=== PATIENT | female | born 1950 | race Caucasian/White ===

== ENCOUNTER 2018-03-26 12:07 | Observation (INO) | payer MEDICARE, SELFPAY ==
[2018-03-26] VITALS (10 sets, daily range): BP systolic 118–164; BP diastolic 53–93; PULSE 53–79; RESP 13–27; TEMP 36.3–36.9; O2SAT 94–100; BMI 29.8; BMI 28.3
--- NOTE | 2018-03-26 12:57 | EKG12_ITS ---
Test Reason : CP Blood Pressure : / mmHG Vent. Rate : 066 BPM Atrial Rate : 066 BPM P-R Int : 220 ms QRS Dur : 100 ms QT Int : 436 ms P-R-T Axes : 049 -05 018 degrees QTc Int : 457 ms Sinus rhythm with 1st degree A-V block Otherwise normal ECG Confirmed by PARAS HITCHCOCK, DWAYNE ([id number]), legal editor EMY HUNTER ([id number] on 03/28/2018 2:13:25 PM Referred By: STEPHANIA Confirmed By:DWAYNE CRAIN MD
--- NOTE | 2018-03-26 12:58 | CT_ITS ---
STUDY: CTA NECK WITH CONTRAST REASON FOR EXAM: Female, 67 years old. Right-sided weakness. Migraine headaches and chest pain. RADIATION DOSAGE (If Supplied By Facility): CTDIvol = ( 24.99 ) mGy, DLP = ( 2102.63 ) mGycm TECHNIQUE: CT angiography with multi-detector data acquisition was performed from the aortic arch to the skull base following intravenous administration of 100 ml of Isovue 370 contrast. MIP images were reconstructed from the axial data set. Post-processing of the angiographic images was performed, with multiplanar reformation and 3D reconstruction. Individualized dose optimization techniques were used for this CT. COMPARISON: None. FINDINGS: Subcentimeter hypodensities in the thyroid gland suggestive of goiter was change. AORTIC ARCH: There is atherosclerotic calcific plaque formation of the aortic arch and great vessels arising from the aortic arch, without a hemodynamically significant stenosis. There is a normal origin of the brachiocephalic, left common carotid arteries.. The left subclavian artery originates from the right brachiocephalic trunk. RIGHT CAROTID ARTERIES: Normal right common carotid artery (CCA). Normal right common carotid bulb. Normal origin of the right internal carotid (ICA) artery without a hemodynamically significant stenosis. Normal visualized cervical portion of the right internal carotid artery. Normal origin of the right external carotid artery (ECA). LEFT CAROTID ARTERIES: Normal left common carotid artery (CCA). Normal left common carotid bulb. Normal origin of the left internal carotid (ICA) artery without a hemodynamically significant stenosis. Normal visualized cervical portion of the left internal carotid artery. Normal origin of the left external carotid artery (ECA). VERTEBRAL ARTERIES: There is enhancement within the bilateral vertebral arteries with a small right vertebral artery, and a dominant left vertebral artery. CT/CTA Neck W/WO Contrast IMPRESSION: No acute abnormality is seen. 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 Electronically Signed: Javi Aranda MD at 14:53 EDT Tel [phone], Service support ,
--- NOTE | 2018-03-26 12:58 | CT_ITS ---
STUDY: CTA CHEST REASON FOR EXAM: Female, 67 years old. Chest pain. Right-sided weakness and migraines. RADIATION DOSAGE (If Supplied By Facility): CTDIvol = ( 24.99 ) mGy, DLP = ( 2102.63 ) mGycm TECHNIQUE: The examination was performed with the intravenous administration of 100 ml of Isovue 370 contrast material. Post-processing of the angiographic images was performed, with multiplanar reformation and 3D reconstruction. Individualized dose optimization techniques were used for this CT. COMPARISON: None. FINDINGS: Normal enhancement of the main pulmonary artery and right and left pulmonary arteries. Normal enhancement of the bilateral peripheral pulmonary arteries. There is no demonstrated pulmonary embolism. There is mild atherosclerotic calcification of the aortic arch with tortuosity. There is no demonstrated aortic dissection. Normal heart and pericardium. Normal mediastinum. Normal hilar regions. Normal visualized trachea and bronchi. The lungs are well expanded. Normal pulmonary parenchyma. Normal pleura. Normal chest wall structures. There are degenerative changes of thoracic spine. Small hiatal hernia. CT/CTA Chest W/WO Contrast IMPRESSION: No acute abnormality is seen. Electronically Signed: Javi Aranda MD at 14:48 EDT Tel [phone], Service support ,
--- NOTE | 2018-03-26 12:58 | CT_ITS ---
STUDY: CTA OF THE BRAIN REASON FOR EXAM: Female, 67 years old. Migraine headaches. Right-sided weakness. RADIATION DOSAGE (If Supplied By Facility): CTDIvol = ( 24.99 ) mGy, DLP = ( 2102.63 ) mGycm TECHNIQUE: CT angiography was performed with a multi-detector CT scanner. Data acquisition was obtained from the skull base through the vertex following intravenous administration of 100 ml of Isovue-370. MIP images were reconstructed from the axial data set. Post-processing of the angiographic images was performed, with multiplanar reformation and 3D reconstruction. Individualized dose optimization techniques were used for this CT. COMPARISON: None. 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 Normal bilateral petrous carotid arteries. Normal right cavernous carotid artery with a normal supraclinoid bifurcation. There is calcified plaque formation of the left cavernous carotid artery, without a cross-sectional luminal stenosis. Normal right A1 segments of the anterior cerebral artery. Normal left A1 segments of the anterior cerebral artery. Normal intact anterior communicating artery (ACOM). Normal bilateral A2 segments of the anterior cerebral arteries. Normal right M1 and M2 segments of the middle cerebral arteries, with a normal M1 bifurcation. Normal left M1 and M2 segments of the middle cerebral arteries, with a normal M1 bifurcation. Normal right posterior communicating artery (PCOM). Normal left posterior communicating artery (PCOM). Normal bilateral vertebral arteries. Normal basilar artery with a normal basilar bifurcation. The visualized bilateral superior cerebellar (SCA) arteries are normal. Normal bilateral P1, P2 and visualized P3 segments of the posterior cerebral arteries. There is no demonstrated aneurysm of the [place] of [place]. Partial opacification of the ethmoid sinuses. Air-fluid level in the right maxillary sinus. CT/CTA Head W/WO Contrast IMPRESSION: Normal [place] without a demonstrated aneurysm or hemodynamically significant stenosis. Partial opacification of the ethmoid sinuses as well as air-fluid level in the right maxillary sinus. Electronically Signed: Javi Aranda MD at 14:51 EDT Tel [phone], Service support ,
--- NOTE | 2018-03-26 13:05 | ED.DCSUM_ITS ---
- ER Visit Summary Date of Service: 03/26/18 Chief Complaint: Chest pain, right-sided weakness History of Present Illness: The patient is a 67 F presenting with right-sided weakness which started approximately 1 hour prior to arrival. Patient states she had a migraine last night. When she woke up this morning it had resolved. The migraine began to come on again while at work. She left work early. Around 11:30 AM she began to notice weakness in her right arm and leg and heaviness in her chest. She also complains of numbness on the right side. Denies vision or speech changes. She states that the chest pain has now resolved. She has nausea with no vomiting. History of migraines, no other medical problems. She is not a smoker. Physical Examination: Vitals are stable. Patient is afebrile. Alert no acute distress. HEENT exam is unremarkable. Neck is supple. No meningismus Lungs are clear and equal bilaterally. Heart is regular rate and rhythm. Abdomen is soft nontender nondistended. Extremities are unremarkable. Skin is warm and dry. NIH 2, RLE weakness, decreased sensation on right Remainder of exam is unremarkable. Emergency Department Course and Treatment: EKG is sinus rate of 66 with no acute ischemic changes. Patient was given aspirin, Compazine, Benadryl. CBC, chemistries unremarkable. Troponin is negative. CTA head and neck show no acute abnormality. CTA chest shows no acute process. On repeat evaluation her NIH is 0. She is feeling improved. Will discuss with the hospitalist for observation. Disposition: Observation Impression: Chest pain, TIA This note was generated with statusboom dictation software. It may contain incorrect words, spelling, and punctuation that were not noted in review of the chart prior to signing ED Disposition - Plan for ED Patient: Chief Complaint: Chest Pain Referrals: Sanju Sheppard MD [Primary Care Provider] -
[2018-03-26] MEDS: proCHLORPERazine 10 MG/2 ML Vial IV (13:38)
[2018-03-26] MEDS: DiphenhydrAMINE 50 MG/ML Syringe 25 MG IV (13:38)
[2018-03-26 13:57] LABS: Absolute Lymphocyte Count 1.76 X10^3/ul (0.83-4.51); Absolute Neutrophil Count 7.6 X10^3/uL (2.0-7.7); Basophil# 0.07 X10^3/uL; Basophil% 0.7 % (0-1); Eosinophil# 0.04 X10^3/uL; Eosinophils% 0.4 % (0-5); Hematocrit 41.1 % (37-47); Hemoglobin 13.2 g/dl (12.0-15.0); Lymphocyte # 1.76 X10^3/ul (4.0); Lymphocyte % 17.8 % (19-41); Mean Corp Hgb Conc 32.1 g/gl (32-36); Mean Corpuscular Hgb 29.1 pg (27.0-32.0); Mean Corpuscular Volume 90.5 fL (81-99); Mean Platelet Vol. 9.7 fl (6.2-12.0); Monocyte# 0.43 X10^3/uL; Monocyte% 4.3 % (0-10); Neutrophil # 7.59 X10^3/uL (2.7-7.7); Neutrophil % 76.8 % (47-70); Platelet Count 280 K/mm3 (150-450); RBC Distribution Width CV 12.9 % (11.6-14.6); RBC Distribution Width SD 42.8 fl (35.1-43.9); Red Blood Count 4.54 M/mm3 (4.2-5.4); White Blood Count 9.9 K/mm3 (4.4-11.0)
[2018-03-26 14:09] LABS: Anion Gap 9 (5-15); BUN 11 mg/dL (7-18); BUN/Creat Ratio 15.1 RATIO (10-20); Calcium,Total 8.9 mg/dL (8.5-10.1); Chloride 107 mmol/L (98-107); Creatinine, Serum 0.73 mg/dL (0.55-1.02); EST Glomerular Filtration Rate 85 mL/min (>60); Est Glom Filt Rate - Afr Amer 103 mL/min (>60); Estimated Creatinine Clearance 63.56 ml/min; Glucose 119 mg/dL (74-106); Potassium 3.4 mmol/L (3.5-5.1); Sodium Level 142 mmol/L (136-145)
[2018-03-26 14:10] LABS: Differential Indicated SCAN CRITERIA MET; POSITIVE COUNT NO; POSITIVE DIFFERENTIAL NO; POSITIVE MORPHOLOGY YES
[2018-03-26] MEDS: Aspirin 325 MG Tablet PO (16:43)
--- NOTE | 2018-03-26 17:55 | PCM.HP.STD ---
Problem List (1) Right sided weakness Status: Acute (2) Migraine Status: Acute (3) Chest pain Status: Acute History of Present Illness Date of Admission: 03/26/18 Chief Complaint: right sided weakness. The patient is a 67 year old F history of migraines but has been migraine free for some time presents with a severe migraine but also developed right-sided weakness today. Patient just felt numb on her right side and has had severe migraines in the past but never had somatic complaints with them. Patient also was feeling palpitations and chest pain. Patient presented to the emergency room where she underwent a CTA of the head neck and a CTA of the chest were all unremarkable. [] Past Medical History Past Medical History (Chronic Problems): Chronic Problems Hiatal hernia (Chronic) Ulcer (Chronic) Medical History: Medical History (Last Updated 03/26/18 @ 17:56 by Oswald Molina DO) IBS (irritable bowel syndrome) K58.9 Migraine G43.909 Allergies venlafaxine HCl [From Effexor] Allergy (Verified 03/26/18 12:08) Hives fluticasone propionate [From Flonase] Adverse Reaction (Verified 03/26/18 12:08) headache Home Medications: Ambulatory Orders Medication Instructions Recorded Phenylephrine/Dm/Acetaminop/GG 1 each PO Q4H PRN PRN 10/22/15 [Sudafed PE Pressure+Pain+Cold] Sumatriptan Succinate 100 mg PO TID PRN PRN 10/22/15 Azelastine HCl [Azelastine HCl] 1 drop EACH EYE BID PRN 03/26/18 Citalopram Hydrobromide 40 mg PO DAILY 03/26/18 [Citalopram HBr] Dicyclomine HCl [Bentyl] 20 mg PO TIDCM 03/26/18 Loperamide [Imodium] 2 mg PO Q4H PRN PRN 03/26/18 Multivitamin [Multiple Vitamins] 1 each PO DAILY 03/26/18 Surgical History: - - egd, colonoscopy Smoking Status: Never smoker Tobacco Use: Non-smoker Alcohol: None Drugs: None - *Family History Maternal History Items: Heart Disease Paternal History Items: Heart Disease Review of Systems Constitutional: Denies: Chills, Fever, Weight Change Eyes: Denies: Blurred vision, Double vision HEENT: Reports: - - migraine. Denies: Head Aches, Sinus Congestion, Sinus Drainage Cardiovascular: Reports: Chest Pain, Palpitations Respiratory: Denies: Cough, Shortness of breath at rest, Sputum production Gastrointestinal: Denies: Abdominal Pain, Nausea, Vomiting Genitourinary: Denies: Dysuria Musculoskeletal: Denies: Joint Pain, Joint Tenderness Skin: Denies: Rash, Wounds Neurological: Reports: Headaches, - - photophobia. Denies: Balance problems, Blurred vision, Double vision Psychiatric: Denies: Anxiety, Depression Hematologic/ Lymphatic: Denies: Easy Bruising, Easy Bleeding, Hx of blood clot Comment: All review of systems are negative except as mentioned in the history of present illness and the other review of systems. VTE Information - Inpt Only VTE Present on Admission: No VTE Mechan Device Prophylaxis: None VTE Pharm Prophylaxis ordered?: Yes Patient Problems: Active and Suspected Problems Right sided weakness (Acute) Migraine (Acute) - Physical Exam General: Alert, Oriented x3, - - Uncomfortable. Sensitive to light. HEENT: Atraumatic, PERRLA, EOMI, Normocephalic Oral: Moist Mucosa, No Gingival or Mucosal Lesions/ Ulcerations Neck: No Nodes, Thyroid Normal Size and Texture Lungs: Clear to auscultation, Normal air movement, No rhonchi, No wheeze Cardiovascular: Regular rate, Regular Rhythm, Normal S1, Normal S2, No murmurs Abdomen: Bowel Sounds Present, Soft, Non Tender, Non-Distended, No Hepato-splenomegaly Extremities: No edema, No Calf Tenderness Skin: No rashes, No breakdown Musculoskeletal: No Tenderness to Palpation of Joints or Extremities, No Muscle Wasting Neurological: Cranial nerves II-XII grossly intact, Deep Tendon Reflexes 2+/4 and Symmetrical, Neuro grossly intact, Motor Exam 5/5 strength throughout, Muscle tone normal, Sensory exam intact to light touch and pain, - - NIH of 0 Psych/Mental Status: Normal Affect, Appropriate Vital Signs Temp Pulse Resp BP Pulse Ox 36.3 C L 53 L 14 142/83 H 100 03/26/18 16:39 03/26/18 17:05 03/26/18 17:05 03/26/18 17:05 03/26/18 17:05 Oxygen Delivery Method Room Air Weight: 76.34 kg Body Mass Index (BMI) 29.8 Laboratory Tests Past 24 Hrs 03/26/18 03/26/18 13:39 13:39 WBC 9.9 RBC 4.54 Hgb 13.2 Hct 41.1 MCV 90.5 MCH 29.1 MCHC 32.1 RDW 12.9 RDW Differential 42.8 Plt Count 280 MPV 9.7 Immature Gran % (Auto) 0.000 Neut % (Auto) 76.8 H Lymph % (Auto) 17.8 L [place] % (Auto) 4.3 Eos % (Auto) 0.4 Baso % (Auto) 0.7 Absolute Neuts (auto) 7.6 Absolute Lymphs (auto) 1.76 Total Counted Not Reportable Differential Comment COMMENT Sodium 142 Potassium 3.4 L Chloride 107 Carbon Dioxide 26.0 Anion Gap 9 BUN 11 Creatinine 0.73 Estim Creat Clear Calc 63.56 Est GFR (MDRD) Af Amer 103 Est GFR (MDRD) Non-Af 85 BUN/Creatinine Ratio 15.1 Glucose 119 H Calcium 8.9 Troponin I < 0.015 Clinical Impression(s) from Imaging Studies Chest CTA 03/26/18 12:58 IMPRESSION: No acute abnormality is seen. Electronically Signed: Javi Aranda MD at 14:48 EDT Tel [phone], Service support , Head CTA 03/26/18 12:58 IMPRESSION: Normal elim [place] of [place] without a demonstrated aneurysm or hemodynamically significant stenosis. Partial opacification of the ethmoid sinuses as well as air-fluid level in the right maxillary sinus. Electronically Signed: Javi Aranda MD at 14:51 EDT Tel [phone], Service support , Neck CTA 03/26/18 12:58 IMPRESSION: No acute abnormality is seen. 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 Electronically Signed: Javi Aranda MD at 14:53 EDT Tel [phone], Service support , EKG reviewed and showed normal sinus rhythm without any acute changes Assessment/Plan All Active Problems Right sided weakness (Acute) Migraine (Acute) Chest pain (Acute) 1. Right-sided weakness Patient has no focal deficits. NIH is 0 I suspect is part related with the patient's a migraine but will do stroke workup to rule out that as an etiology Patient will be on aspirin which she received in the emergency room Patient will have an MRI of the brain. Patient already underwent a CT angiogram of the head neck so an MRA is not necessary 2D echocardiogram Neurology consult Bedside swallow evaluation, patient passes then she can eat, but if she fails, consult speech therapy PT OT evaluate and treat 2. Migraine Patient has a few migraine bad migraines per year but does get headaches intermittently Only takes sumatriptan and when he gets severe. With this being a possible stroke that will be held I will give her 10 mg of Decadron and then as needed Benadryl and Phenergan If patient stroke workup comes back unremarkable will defer to neurology to see if patient may require any chronic suppressive medications for migraines 3. Chest pain ZION score of 1 Will have the patient perform a stress test Cycle troponins CT angiogram of the chest was negative 4. DVT prophylaxis with low migrate heparin Code Visit Inpatient E&M: 55825 Init Hosp L3
--- NOTE | 2018-03-26 18:02 | HP.PCM_ITS ---
Problem List (1) Right sided weakness Status: Acute (2) Migraine Status: Acute (3) Chest pain Status: Acute History of Present Illness Date of Admission: 03/26/18 Chief Complaint: right sided weakness. The patient is a 67 year old F history of migraines but has been migraine free for some time presents with a severe migraine but also developed right-sided weakness today. Patient just felt numb on her right side and has had severe migraines in the past but never had somatic complaints with them. Patient also was feeling palpitations and chest pain. Patient presented to the emergency room where she underwent a CTA of the head neck and a CTA of the chest were all unremarkable. [] Past Medical History Past Medical History (Chronic Problems): Chronic Problems Hiatal hernia (Chronic) Ulcer (Chronic) Medical History: Medical History (Last Updated 03/26/18 @ 17:56 by Oswald Molina DO) IBS (irritable bowel syndrome) K58.9 Migraine G43.909 Allergies venlafaxine HCl [From Effexor] Allergy (Verified 03/26/18 12:08) Hives fluticasone propionate [From Flonase] Adverse Reaction (Verified 03/26/18 12:08) headache Home Medications: Ambulatory Orders Medication Instructions Recorded Phenylephrine/Dm/Acetaminop/GG 1 each PO Q4H PRN PRN 10/22/15 [Sudafed PE Pressure+Pain+Cold] Sumatriptan Succinate 100 mg PO TID PRN PRN 10/22/15 Azelastine HCl [Azelastine HCl] 1 drop EACH EYE BID PRN 03/26/18 Citalopram Hydrobromide 40 mg PO DAILY 03/26/18 [Citalopram HBr] Dicyclomine HCl [Bentyl] 20 mg PO TIDCM 03/26/18 Loperamide [Imodium] 2 mg PO Q4H PRN PRN 03/26/18 Multivitamin [Multiple Vitamins] 1 each PO DAILY 03/26/18 Surgical History: - - egd, colonoscopy Smoking Status: Never smoker Tobacco Use: Non-smoker Alcohol: None Drugs: None - *Family History Maternal History Items: Heart Disease Paternal History Items: Heart Disease Review of Systems Constitutional: Denies: Chills, Fever, Weight Change Eyes: Denies: Blurred vision, Double vision HEENT: Reports: - - migraine. Denies: Head Aches, Sinus Congestion, Sinus Drainage Cardiovascular: Reports: Chest Pain, Palpitations Respiratory: Denies: Cough, Shortness of breath at rest, Sputum production Gastrointestinal: Denies: Abdominal Pain, Nausea, Vomiting Genitourinary: Denies: Dysuria Musculoskeletal: Denies: Joint Pain, Joint Tenderness Skin: Denies: Rash, Wounds Neurological: Reports: Headaches, - - photophobia. Denies: Balance problems, Blurred vision, Double vision Psychiatric: Denies: Anxiety, Depression Hematologic/ Lymphatic: Denies: Easy Bruising, Easy Bleeding, Hx of blood clot Comment: All review of systems are negative except as mentioned in the history of present illness and the other review of systems. VTE Information - Inpt Only VTE Present on Admission: No VTE Mechan Device Prophylaxis: None VTE Pharm Prophylaxis ordered?: Yes Patient Problems: Active and Suspected Problems Right sided weakness (Acute) Migraine (Acute) - Physical Exam General: Alert, Oriented x3, - - Uncomfortable. Sensitive to light. HEENT: Atraumatic, PERRLA, EOMI, Normocephalic Oral: Moist Mucosa, No Gingival or Mucosal Lesions/ Ulcerations Neck: No Nodes, Thyroid Normal Size and Texture Lungs: Clear to auscultation, Normal air movement, No rhonchi, No wheeze Cardiovascular: Regular rate, Regular Rhythm, Normal S1, Normal S2, No murmurs Abdomen: Bowel Sounds Present, Soft, Non Tender, Non-Distended, No Hepato- splenomegaly Extremities: No edema, No Calf Tenderness Skin: No rashes, No breakdown Musculoskeletal: No Tenderness to Palpation of Joints or Extremities, No Muscle Wasting Neurological: Cranial nerves II-XII grossly intact, Deep Tendon Reflexes 2+/4 and Symmetrical, Neuro grossly intact, Motor Exam 5/5 strength throughout, Muscle tone normal, Sensory exam intact to light touch and pain, - - NIH of 0 Psych/Mental Status: Normal Affect, Appropriate Vital Signs Temp Pulse Resp BP Pulse Ox 36.3 C L 53 L 14 142/83 H 100 03/26/18 16:39 03/26/18 17:05 03/26/18 17:05 03/26/18 17:05 03/26/18 17:05 Oxygen Delivery Method Room Air Weight: 76.34 kg Body Mass Index (BMI) 29.8 Laboratory Tests Past 24 Hrs 03/26/18 03/26/18 13:39 13:39 WBC 9.9 RBC 4.54 Hgb 13.2 Hct 41.1 MCV 90.5 MCH 29.1 MCHC 32.1 RDW 12.9 RDW Differential 42.8 Plt Count 280 MPV 9.7 Immature Gran % (Auto) 0.000 Neut % (Auto) 76.8 H Lymph % (Auto) 17.8 L [place] % (Auto) 4.3 Eos % (Auto) 0.4 Baso % (Auto) 0.7 Absolute Neuts (auto) 7.6 Absolute Lymphs (auto) 1.76 Total Counted Not Reportable Differential Comment COMMENT Sodium 142 Potassium 3.4 L Chloride 107 Carbon Dioxide 26.0 Anion Gap 9 BUN 11 Creatinine 0.73 Estim Creat Clear Calc 63.56 Est GFR (MDRD) Af Amer 103 Est GFR (MDRD) Non-Af 85 BUN/Creatinine Ratio 15.1 Glucose 119 H Calcium 8.9 Troponin I < 0.015 Clinical Impression(s) from Imaging Studies Chest CTA 03/26/18 12:58 IMPRESSION: No acute abnormality is seen. Electronically Signed: Javi Aranda MD at 14:48 EDT Tel [phone], Service support , Head CTA 03/26/18 12:58 IMPRESSION: Normal [place] without a demonstrated aneurysm or hemodynamically significant stenosis. Partial opacification of the ethmoid sinuses as well as air-fluid level in the right maxillary sinus. Electronically Signed: Javi Aranda MD at 14:51 EDT Tel [phone], Service support , Neck CTA 03/26/18 12:58 IMPRESSION: No acute abnormality is seen. 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 Electronically Signed: Javi Aranda MD at 14:53 EDT Tel [phone], Service support , EKG reviewed and showed normal sinus rhythm without any acute changes Assessment/Plan All Active Problems Right sided weakness (Acute) Migraine (Acute) Chest pain (Acute) 1. Right-sided weakness * Patient has no focal deficits. * NIH is 0 * I suspect is part related with the patient's a migraine but will do stroke workup to rule out that as an etiology * Patient will be on aspirin which she received in the emergency room * Patient will have an MRI of the brain. Patient already underwent a CT angiogram of the head neck so an MRA is not necessary * 2D echocardiogram * Neurology consult * Bedside swallow evaluation, patient passes then she can eat, but if she fails , consult speech therapy * PT OT evaluate and treat 2. Migraine * Patient has a few migraine bad migraines per year but does get headaches intermittently * Only takes sumatriptan and when he gets severe. With this being a possible stroke that will be held * I will give her 10 mg of Decadron and then as needed Benadryl and Phenergan * If patient stroke workup comes back unremarkable will defer to neurology to see if patient may require any chronic suppressive medications for migraines 3. Chest pain * ZION score of 1 * Will have the patient perform a stress test * Cycle troponins * CT angiogram of the chest was negative 4. DVT prophylaxis with low migrate heparin Code Visit Inpatient E&M: 64814 Init Hosp L3
--- NOTE | 2018-03-26 18:25 | NURSING ---
1805 called er charge to accept patient
--- NOTE | 2018-03-26 18:38 | MRI_ITS ---
STUDY: MRI BRAIN WITH AND WITHOUT CONTRAST REASON FOR EXAM: Female, 67 years old. Right-sided weakness and increased heart rate. TECHNIQUE: Standardized multiplanar fat and water weighted pulse sequences were obtained. 9 ml of Gadavist contrast material was administered intravenously for the contrast portion of the examination. COMPARISON: None. FINDINGS: There is mild cerebral atrophy with widening of the extra-axial spaces and ventricular dilatation. There are multiple white matter hyperintensities, distributed throughout the deep white matter tracts of the cerebral hemispheres, consistent with moderate chronic white matter ischemic changes. There is no evidence for recent intracranial ischemia or other cause of cytotoxic edema on diffusion weighted imaging (DWI). Normal T2* images of the brain without demonstrated susceptibility artifact. There is no demonstrated hemosiderin stain. 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 Normal thalami. There is no extra-axial fluid accumulation. Normal flow voids within the major intracranial circulation suggesting patency by spin echo criteria. Normal venous enhancement. There is no enhancing intra-axial or extra-axial abnormality. Normal sella turcica, pituitary gland, infundibular stalk, optic chiasm and hypothalamus. Normal tectal plate and pineal gland. Normal midbrain, aaron and medulla. Normal cerebellum. Normal basal cisterns. Normal bilateral temporal bones. Normal bilateral internal auditory canals. No demonstrated orbital abnormality, within the constraints of a routine brain study. Fluid layering within the right maxillary sinus is present. Normal calvarium and skull base. Normal visualized soft tissue structures. Normal visualized upper cervical spine. MRI/Brain W/WO Contrast IMPRESSION: Senescent changes above with no evidence of acute intracranial bleed, mass or ischemia. Electronically Signed: Fernando Garcia DO at 20:31 EDT , Service support ,
--- NOTE | 2018-03-26 18:38 | ECHOD_ITS ---
Reason For Study: TIA/CVA Procedure This was a 2D Doppler, Color Flow transthoracic echocardiogram. The study was technically difficult. Exam performed in department. Left Ventricle Normal LV size. Left ventricular systolic function is normal. The estimated ejection fraction is 55 %. Stage 1 diastolic dysfunction. No regional wall motion abnormalities noted. Right Ventricle Normal RV size. Normal systolic function. Atria Normal left atrium. Normal right atrium. Mitral Valve Normal mitral valve. Tricuspid Valve Normal tricuspid valve. Unable to estimate RV systolic pressure/pulmonary artery pressure due to technically difficult study. Aortic Valve Trisinus/trileaflet aortic valve. Great Vessels Normal aortic root. The pulmonary artery is normal size. Normal inferior vena cava. Pericardium/Pleural No pericardial effusion. Medication Performed a rapid injection of agitated mix of 9 cc saline and 1cc air to assess for atrial septal defect. MMode/2D Measurements & Calculations LVIDd: 3.5 cm IVSd: 1.0 cm Ao root diam: 3.0 cm LVIDs: 1.9 cm LVPWd: 0.90 cm LA dimension: 2.9 cm FS: 43.6 % LAV(MOD-sp4): 50.8 ml LA A4 area: 17.9 cm2 Time Measurements MV dec time: 0.22 sec Doppler Measurements & Calculations MV E max preston: 71.2 cm/sec Lat Peak E' Preston: 8.8 cm/sec Med Peak E' Preston: 4.6 cm/sec MV A max preston: 108.9 cm/sec E/E' lat: 8.1 E/E' med: 15.4 MV E/A: 0.65 MV V2 max: 120.4 cm/sec MV P1/2t max preston: 86.7 cm/sec Ao V2 max: 114.6 cm/sec MV max P.8 mmHg MV P1/2t: 71.0 msec Ao max P.3 mmHg MV V2 mean: 67.5 cm/sec MV dec slope: 357.7 cm/sec2 Ao V2 mean: 71.4 cm/sec MV mean P.1 mmHg MVA(P1/2t): 3.1 cm2 Ao mean P.4 mmHg MV V2 VTI: 24.1 cm Ao V2 VTI: 21.3 cm LV V1 max: 91.3 cm/sec PA V2 max: 83.8 cm/sec LV V1 max P.3 mmHg LV V1 mean P.6 mmHg LV V1 mean: 59.0 cm/sec LV V1 VTI: 20.5 cm Interpretation Summary Normal LV size. Left ventricular systolic function is normal. The estimated ejection fraction is 55 %. Stage 1 diastolic dysfunction. Structurally normal valves. Ordering Physician: Oswald Molina Referring Physician: ANTOINETTE JOSHUA Performed By: Stan Campa RCS
[2018-03-27] VITALS (9 sets, daily range): BP systolic 99–153; BP diastolic 46–94; PULSE 47–95; RESP 14–18; TEMP 36.8–37; O2SAT 95–98
--- NOTE | 2018-03-27 05:55 | EKG12_ITS ---
Test Reason : AM EKG Blood Pressure : / mmHG Vent. Rate : 055 BPM Atrial Rate : 055 BPM P-R Int : 206 ms QRS Dur : 092 ms QT Int : 458 ms P-R-T Axes : 052 -06 023 degrees QTc Int : 438 ms Sinus bradycardia Otherwise normal ECG Confirmed by PARAS HITCHCOCK, DWAYNE ([id number]), script editor EMY HUNTER ([id number] on 03/30/2018 1:44:06 PM Referred By: JOSÉ MIGUEL Confirmed By:DWAYNE CRAIN MD
--- NOTE | 2018-03-27 05:55 | STEWCON_ITS ---
Reason For Study: CHEST PAIN Stress Results Protocol: Moi Protocol Maximum Predicted HR: 155 bpm Target HR: 132 bpm% Max imum Predicted HR: 95 % DurationHeart Rate Stage (mm:ss) (bpm) BPComm ent BASELINE 59 132/78 2 CC DEFINITY STAGE 1 3:00 12 0 178/100 STAGE 2 3:00 14 8 182/98 1 CC DEFINITY RECOVERY 77 122/82 2 CC DEFINITY Stress Duration: 6:00 mm:ss Maximum Stress HR: 148 bpm Baseline Echocardiogram Findings Stress Echo Wall motion Data Resting WMIntermediate WMStress WM Stress Results Normal blood pressure response to exercise. Exercise was stopped due to fatigue. EKG Data Baseline ECG demonstrates normal sinus rhythm with a rate of 56 beats per minute. Normal intervals are noted. The resting blood pressure was 132/78. The patient exercised according to the regular Moi protocol for a total duration of 6 min. The maximum heart rate attained was 148 beats per minute. This was 95% of maximum predicted heart rate. The patient exercised into stage 2 of the Moi protocol. During stress, there were no ST or T wave changes noted to suggest ischemia. At peak exercise, upsloping ST changes only were noted, which did not meet the criteria for ischemia. The peak blood pressure was 182/98. No arrhythmias noted. No clinical angina was noted. Interpretation Summary Normal resting LV systolic function. Nonstenotic valves. With stress, the LV size decreased and all segments augmented normally. The LVEF increased from 55% to 65%. Negative for ischemia at 95% of MPHR and at 7 METS. Normal stress echo at a moderate workload. Ordering Physician: Oswald Molina Performed By: Stna Campa RCS
[2018-03-27] MEDS: Aspirin 81 MG TAB.CHEW PO (06:16)
[2018-03-27 06:27] LABS: International Normalized Ratio 0.9; Prothrombin Time (Protime)PT. 12.5 SECONDS (11.7-14.9)
[2018-03-27 06:45] LABS: Absolute Lymphocyte Count 1.68 X10^3/ul (0.83-4.51); Absolute Neutrophil Count 6.7 X10^3/uL (2.0-7.7); Basophil# 0.02 X10^3/uL; Basophil% 0.2 % (0-1); Hemoglobin 12.8 g/dl (12.0-15.0); Lymphocyte # 1.68 X10^3/ul (4.0); Lymphocyte % 19.9 % (19-41); Mean Corp Hgb Conc 32.8 g/gl (32-36); Mean Corpuscular Hgb 29.6 pg (27.0-32.0); Mean Corpuscular Volume 90.3 fL (81-99); Monocyte# 0.07 X10^3/uL; Monocyte% 0.8 % (0-10); Neutrophil # 6.65 X10^3/uL (2.7-7.7); Platelet Count 291 K/mm3 (150-450); RBC Distribution Width CV 12.6 % (11.6-14.6); RBC Distribution Width SD 41.2 fl (35.1-43.9); Red Blood Count 4.32 M/mm3 (4.2-5.4); White Blood Count 8.4 K/mm3 (4.4-11.0)
[2018-03-27 06:46] LABS: Differential Indicated SCAN CRITERIA MET; POSITIVE COUNT NO; POSITIVE DIFFERENTIAL NO; POSITIVE MORPHOLOGY YES
[2018-03-27 06:50] LABS: Anion Gap 9 (5-15); BUN 11 mg/dL (7-18); BUN/Creat Ratio 15.7 RATIO (10-20); Calcium,Total 8.8 mg/dL (8.5-10.1); Chloride 108 mmol/L (98-107); Cholesterol 152 mg/dL (200); EST Glomerular Filtration Rate 89 mL/min (>60); Est Glom Filt Rate - Afr Amer 108 mL/min (>60); Estimated Creatinine Clearance 66.28 ml/min; Glucose 138 mg/dL (74-106); High Density Lipoprotein 55 mg/dL; Potassium 3.9 mmol/L (3.5-5.1); Sodium Level 141 mmol/L (136-145); Triglycerides 48 mg/dL; Very Low Density Lipoprotein 10 mg/dL (5-40)
[2018-03-27] MEDS: Multivitamins,Therapeutic Tablet 1 TABLET PO (10:00)
[2018-03-27] MEDS: Dicyclomine 10 MG Capsule 20 MG PO (10:00)
[2018-03-27] MEDS: Citalopram 40 MG TABLET PO (10:02)
[2018-03-27] MEDS: 0.9% NaCl Peripheral Flush Adult/Peds IV ×2 (10:04→12:42)
[2018-03-27] MEDS: Ketorolac 30 MG/ML Syringe IV (11:23)
--- NOTE | 2018-03-27 12:21 | DCINST_ITS ---
- Discharge Diagnoses Current Active Problems: Current Active and Chronic Problems (Last Updated 03/26/18 @ 17:56 by Oswald Molina DO) Right sided weakness (Acute) Migraine (Acute) You will use the following diet at home:: No restrictions Your food should be the consistency of: Regular Your liquids should be the consistency of: Regular/Thin Discharge Activity: Return to Normal Activity Allergies/Adverse Reactions: Allergies venlafaxine HCl [From Effexor] Allergy (Verified 03/26/18 12:08) Hives fluticasone propionate [From Flonase] Adverse Reaction (Verified 03/26/18 12:08) headache Medications to take at Discharge Sumatriptan Succinate 100 mg PO TID PRN PRN 10/22/15 Azelastine HCl 1 drop EACH EYE BID PRN 03/26/18 Citalopram Hydrobromide [Citalopram HBr] 40 mg PO DAILY 03/26/18 Dicyclomine HCl [Bentyl] 20 mg PO TIDCM 03/26/18 Loperamide [Imodium] 2 mg PO Q4H PRN PRN 03/26/18 Multivitamin [Multiple Vitamins] 1 each PO DAILY 03/26/18 Primary Care Physician: Sanju Sheppard MD [Primary Care Provider] - Please follow up with your Primary Care Physician in: 1-2 weeks Test Results: Test results from this visit will be discussed in further detail at your follow- up appointment, if applicable. Please Follow Up With: Arron Zambrano MD - Neurology When: 1-2 weeks Proposed Discharge Date: 03/27/18
[2018-03-27] MEDS: Magnesium Sulfate 1 GM in 0.9% Normal Saline 100 ML IV (12:42)
--- NOTE | 2018-03-27 12:53 | PCM.CONS.GEN ---
Problem List (1) Complicated migraine Status: Acute Reason for Consult Date of Consultation: 03/27/18 Reason for Consultation: MULLEN, right sided weakness History of Present Illness: The patient is a 67 year old CF with PMH depression, IBS, H/O migraine admitted with MULLEN and right sided weakness. Per patient she gets migraine MULLEN about once in 2 months, is frontal, with photophobia, phonophobia, visual disturbances, lasting hours, takes Imitrex PRN for MULLEN, had been following with Dr. Zambrano. This time per patient her MULLEN started around Monday evening (03/25/18), which was frontal, her usual migraine MULLEN, then the next day she went to work and had right sided weakness lasting hours before improving, had MULLEN during that time, at present denies denies any right sided weakness, has about 2/10 frontal pressure like MULLEN, denies any focal motor weakness, sensory loss, visual disturbances or speech disturbances. MRI brain done on admission reported to be normal. CTA head/neck did not show any hemodynamically significant stenosis or occlusion. Denies any jaw claudication, vision loss or temporal tenderness. [] Past Medical History Past Medical History (Chronic Problems): Chronic Problems (Last Updated 03/26/18 @ 17:56 by Oswald Molina DO) Ulcer (Chronic) Hiatal hernia (Chronic) Medical History: Medical History (Last Updated 03/26/18 @ 17:56 by Oswald Molina DO) IBS (irritable bowel syndrome) K58.9 Migraine G43.909 Allergies venlafaxine HCl [From Effexor] Allergy (Verified 03/26/18 12:08) Hives fluticasone propionate [From Flonase] Adverse Reaction (Verified 03/26/18 12:08) headache Home Medications: Ambulatory Orders Medication Instructions Recorded Sumatriptan Succinate 100 mg PO TID PRN PRN 10/22/15 Azelastine HCl 1 drop EACH EYE BID PRN 03/26/18 Citalopram Hydrobromide 40 mg PO DAILY 03/26/18 [Citalopram HBr] Dicyclomine HCl [Bentyl] 20 mg PO TIDCM 03/26/18 Loperamide [Imodium] 2 mg PO Q4H PRN PRN 03/26/18 Multivitamin [Multiple Vitamins] 1 each PO DAILY 03/26/18 Surgical History: - - egd, colonoscopy Lives: Spouse/ Significant Other Smoking Status: Never smoker Tobacco Use: Non-smoker Alcohol: None Drugs: None - *Family History Maternal History Items: Heart Disease Paternal History Items: Heart Disease Review of Systems Constitutional: Reports: - - complete ROS negative except as stated in HPI - Physical Exam General: Alert HEENT: Normocephalic Neck: Supple Lungs: Clear to auscultation Cardiovascular: Normal S1, Normal S2 Abdomen: Bowel Sounds Present Extremities: No cyanosis Skin: No rashes Musculoskeletal: No Tenderness to Palpation of Joints or Extremities Neurological: - - consious, alert, AoAx3, CN 2-12 grossly intact, power 5/5 all 4 extremities, no sensory loss, no cerebellar signs, Reflexes + B/L B/S/T/K/A. gait deferred, fundus not visualized. Psych/Mental Status: Normal Affect Vital Signs Temp Pulse Resp BP Pulse Ox 98.2 F 66 18 126/65 H 97 03/27/18 12:48 03/27/18 12:48 03/27/18 12:48 03/27/18 12:48 03/27/18 12:48 Oxygen Delivery Method Room Air Weight: 72.4 kg Body Mass Index (BMI) 28.3 Intake and Output for Last 24 Hours 03/25/18 03/26/18 03/27/18 23:59 23:59 23:59 Intake Total 600 / 600 655 / 655 Balance 600 / 600 655 / 655 Laboratory Tests Past 24 Hrs 03/26/18 03/27/18 03/27/18 18:59 05:43 05:43 WBC 8.4 RBC 4.32 Hgb 12.8 Hct 39.0 MCV 90.3 MCH 29.6 MCHC 32.8 RDW 12.6 RDW Differential 41.2 Plt Count 291 MPV 10.0 Immature Gran % (Auto) 0.100 Neut % (Auto) 79.0 H Lymph % (Auto) 19.9 Simpson % (Auto) 0.8 Eos % (Auto) 0.0 Baso % (Auto) 0.2 Absolute Neuts (auto) 6.7 Absolute Lymphs (auto) 1.68 Total Counted Not Reportable PT INR APTT Sodium 141 Potassium 3.9 Chloride 108 H Carbon Dioxide 24.0 Anion Gap 9 BUN 11 Creatinine 0.70 Estim Creat Clear Calc 66.28 Est GFR (MDRD) Af Amer 108 Est GFR (MDRD) Non-Af 89 BUN/Creatinine Ratio 15.7 Glucose 138 H Calcium 8.8 Troponin I < 0.015 Triglycerides 48 Cholesterol 152 LDL Cholesterol 87 VLDL Cholesterol 10 HDL Cholesterol 55 03/27/18 05:43 WBC RBC Hgb Hct MCV MCH MCHC RDW RDW Differential Plt Count MPV Immature Gran % (Auto) Neut % (Auto) Lymph % (Auto) Simpson % (Auto) Eos % (Auto) Baso % (Auto) Absolute Neuts (auto) Absolute Lymphs (auto) Total Counted PT 12.5 INR 0.9 APTT 32.0 Sodium Potassium Chloride Carbon Dioxide Anion Gap BUN Creatinine Estim Creat Clear Calc Est GFR (MDRD) Af Amer Est GFR (MDRD) Non-Af BUN/Creatinine Ratio Glucose Calcium Troponin I Triglycerides Cholesterol LDL Cholesterol VLDL Cholesterol HDL Cholesterol Assessment/Plan All Active Problems (Last Updated 03/26/18 @ 17:56 by Oswald Molina DO) Chest pain (Acute) Right sided weakness (Acute) Migraine (Acute) Complicated migraine (Acute) The patient is a 67 year old CF with PMH depression, IBS, H/O migraine admitted with MULLEN and right sided weakness. Per patient she gets migraine MULLEN about once in 2 months, is frontal, with photophobia, phonophobia, visual disturbances, lasting hours, takes Imitrex PRN for MULLEN, had been following with Dr. Zambrano. This time per patient her MULLEN started around Monday evening (03/25/18), which was frontal, her usual migraine MULLEN, then the next day she went to work and had right sided weakness lasting hours before improving, had MULLEN during that time, at present denies denies any right sided weakness, has about 2/10 frontal pressure like MULLEN, denies any focal motor weakness, sensory loss, visual disturbances or speech disturbances. MRI brain done on admission reported to be normal. CTA head/neck did not show any hemodynamically significant stenosis or occlusion. Denies any vision loss, jaw claudication or temporal tenderness Impression Likely Complicated Migraine Status migrainosus Plan -MRI brain and CTA head/neck report reviewed -Depacon 1 g IV once, Decadron 10 mg IV once, Magnesium Sulphate 1 g IV once and Toradol 30 mg IV once -Labs reviewed. Check ESR -Patient counseled to be on ASA 81 mg PO once daily for primary prevention -Avoid Triptans like Imitrex due to complicated migraine, discussed the same with the patient -Discussed preventive medication but she follows up with Neurologist Dr. Zambrano at [facility], with whom she can follow and discuss preventive medication for migraines, she agrees with the same -Further medical management per primary team -GI/DVT prophylaxis -Fall precautions -Further medical management per primary team -Please follow up with Neurology as outpatient (Dr. Zambrano) in about 1-2 weeks -Please call with questions if any -Thank you for allowing us to participate in patient's care and management I spent 60 minutes taking history, doing physical examination, reviewing medical records, coordinating care and counseling the patient. Code Visit Inpatient E&M: 06836 Init Hosp L3
--- NOTE | 2018-03-27 14:21 | CHAPLAIN ---
Type of Pastoral Visit _x__ Initial Visit ___ Follow-up Visit ___ On-call Visit ___ General Patient Visit ___ Spiritual Assessment ___ Family Conference ___ Bereavement ___ Rapid Response ___ Code Blue ___ Other (describe below) Pastoral Care Referral From _x__ Patient ___ Family ___ Nurse ___ Physician ___ Pie Bakery Laborer ___ Marine Structural Welder ___ Other (describe below) Sacrament/Intervention _x__ Active listening ___ Anointing ___ Episcopalian ___ Bereavement ___ Communion _x__ Lula exploration ___ _x__ Life review _x__ Prayer ___ Reconciliation ___ Sacrament of Sick _x__ Supportive presence ___ Wedding ___ Other (describe below) Pastoral Comments patient expressed some questions of spiritual nature; pt is relieved that situation is not as bad as it could have been or that she feared; prayer welcomed
[2018-03-27 14:22] LABS: Erythrocyte Sedimentation Rate 20 mm/hr (0-30)
--- NOTE | 2018-03-27 14:26 | PCM.DC.SUM ---
Discharge Date and Diagnosis Date of Admission: 03/26/18 Date of Discharge: 03/27/18 - Primary Discharge Diagnosis Active and Suspected Problems (Last Updated 03/26/18 @ 17:56 by Oswald Molina DO) Right sided weakness 2/2 Acute Complicated migraine (Acute) chest pain/palp - cardiac etiology ruled out. - Secondary Discharge Diagnosis Chronic Problems (Last Updated 03/26/18 @ 17:56 by Oswald Molina DO) Ulcer (Chronic) Hiatal hernia (Chronic) Hospital Course and Treatment Imaging Results: CT/CTA Chest W/WO Contrast IMPRESSION: No acute abnormality is seen. CT/CTA Head W/WO Contrast IMPRESSION: Normal [place] without a demonstrated aneurysm or hemodynamically significant stenosis. Partial opacification of the ethmoid sinuses as well as air-fluid level in the right maxillary sinus. CT/CTA Neck W/WO Contrast IMPRESSION: No acute abnormality is seen. 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 MRI/Brain W/WO Contrast IMPRESSION: Senescent changes above with no evidence of acute intracranial bleed, mass or ischemia. Consults: [place] - neuro Operations: None Procedures: None Summary of Care Provided: Physical exam on day of discharge: General: Resting comfortably NAD Psych: A/Ox3 normal affect HEENT: PEARRLA AT NC Neck: Supple NT CV: RRR no m/t/r/g/h Resp: CTA Abd: [id number] Soft NT no guarding or rigidity Ext: DP2+= no edema Skin: W/D normal turgor Lymph/Heme: No active bleeding or adenopathy Neuro: CN2-12 intact Hospital course: The patient is a 67 year old F with a hx of migraines who presented to the ER with chief complaint of right arm weakness and BL perioccular MULLEN of sudden onset, also with some chest pain and palp. She underwent CTA chest - negative, CTA head and neck - also negative. She was given phenergan benadryl, and decadron. She was seen by neuro the following day. She had a negative MRI. She was felt to have migraine. She was given a further decadron, IV depakote, toradol, and magnesium IV. Troponin negative x 3, No events on tele, echo readout is pending at this time, no further CP or palp. She was discharged home in stable condition. She was advised to follow up with her own neurologist, and with her PCP. This patient was seen by Jeremi Umana PA-C under the supervision of Doctor Silvia. [] Discharge Diet: No Restrictions Discharge Activity: Return to Normal Activity Home Medications: Medications to take at Discharge Sumatriptan Succinate 100 mg PO TID PRN PRN 10/22/15 Azelastine HCl 1 drop EACH EYE BID PRN 03/26/18 Citalopram Hydrobromide [Citalopram HBr] 40 mg PO DAILY 03/26/18 Dicyclomine HCl [Bentyl] 20 mg PO TIDCM 03/26/18 Loperamide [Imodium] 2 mg PO Q4H PRN PRN 03/26/18 Multivitamin [Multiple Vitamins] 1 each PO DAILY 03/26/18 Primary Care Physician: Sanju Sheppard MD [Primary Care Provider] - Please follow up with your Primary Care Physician in: 1-2 weeks Please Follow Up With: Arron Zambrano MD - Neurology When: 1-2 weeks Disposition: Home Minutes spent on discharge:: 35 Patient Condition:: Stable Medical Necessity - Tobacco Use Smoking Status: Never smoker Tobacco Use: Non-smoker Meaningful Use Info Meaningful Use Diagnoses (Choose all that apply): None applicable
--- NOTE | 2018-03-27 14:37 | DS.PCM_ITS ---
Discharge Date and Diagnosis Date of Admission: 03/26/18 Date of Discharge: 03/27/18 - Primary Discharge Diagnosis Active and Suspected Problems (Last Updated 03/26/18 @ 17:56 by Oswald Molina DO ) Right sided weakness 2/2 Acute Complicated migraine (Acute) chest pain/palp - cardiac etiology ruled out. - Secondary Discharge Diagnosis Chronic Problems (Last Updated 03/26/18 @ 17:56 by Oswald Molina DO) Ulcer (Chronic) Hiatal hernia (Chronic) Hospital Course and Treatment Imaging Results: CT/CTA Chest W/WO Contrast IMPRESSION: No acute abnormality is seen. CT/CTA Head W/WO Contrast IMPRESSION: Normal [place] without a demonstrated aneurysm or hemodynamically significant stenosis. Partial opacification of the ethmoid sinuses as well as air-fluid level in the right maxillary sinus. CT/CTA Neck W/WO Contrast IMPRESSION: No acute abnormality is seen. 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 MRI/Brain W/WO Contrast IMPRESSION: Senescent changes above with no evidence of acute intracranial bleed, mass or ischemia. Consults: [place] - neuro Operations: None Procedures: None Summary of Care Provided: Physical exam on day of discharge: General: Resting comfortably NAD Psych: A/Ox3 normal affect HEENT: [place] AT NC Neck: Supple NT CV: RRR no m/t/r/g/h Resp: CTA Abd: [id number] Soft NT no guarding or rigidity Ext: DP2+= no edema Skin: W/D normal turgor Lymph/Heme: No active bleeding or adenopathy Neuro: CN2-12 intact Hospital course: The patient is a 67 year old F with a hx of migraines who presented to the ER with chief complaint of right arm weakness and BL perioccular MULLEN of sudden onset , also with some chest pain and palp. She underwent CTA chest - negative, CTA head and neck - also negative. She was given phenergan benadryl, and decadron. She was seen by neuro the following day. She had a negative MRI. She was felt to have migraine. She was given a further decadron, IV depakote, toradol, and magnesium IV. Troponin negative x 3, No events on tele, echo readout is pending at this time, no further CP or palp. She was discharged home in stable condition. She was advised to follow up with her own neurologist, and with her PCP. This patient was seen by Jeremi Umana PA-C under the supervision of Doctor Silvia. [] Discharge Diet: No Restrictions Discharge Activity: Return to Normal Activity Home Medications: Medications to take at Discharge Sumatriptan Succinate 100 mg PO TID PRN PRN 10/22/15 Azelastine HCl 1 drop EACH EYE BID PRN 03/26/18 Citalopram Hydrobromide [Citalopram HBr] 40 mg PO DAILY 03/26/18 Dicyclomine HCl [Bentyl] 20 mg PO TIDCM 03/26/18 Loperamide [Imodium] 2 mg PO Q4H PRN PRN 03/26/18 Multivitamin [Multiple Vitamins] 1 each PO DAILY 03/26/18 Primary Care Physician: Sanju Sheppard MD [Primary Care Provider] - Please follow up with your Primary Care Physician in: 1-2 weeks Please Follow Up With: Arron Zambrano MD - Neurology When: 1-2 weeks Disposition: Home Minutes spent on discharge:: 35 Patient Condition:: Stable Medical Necessity - Tobacco Use Smoking Status: Never smoker Tobacco Use: Non-smoker Meaningful Use Info Meaningful Use Diagnoses (Choose all that apply): None applicable
== END 2018-03-27 12:20 | disposition home or self-care (01) ==
LOC: ED 13:22 → PCU 18:19
PROVIDERS: Psychiatry & Neurology Neurology; Emergency Provider Emergency Medicine; Family Provider Family Medicine; PCP Family Medicine; Visit Provider Internal Medicine
DX: R07.89 Other chest pain (principal); R53.1 Weakness; G43.109 Migraine with aura, not intractable, without status migrainosus; K58.9 Irritable bowel syndrome, unspecified; K44.9 Diaphragmatic hernia without obstruction or gangrene; Z79.899 Other long term (current) drug therapy
CPT/HCPCS: 36415; 70496; 70498; 70553; 71275; 80048; 80061; 84484; 85025; 85610; 85652; 85730; 93005; 93017; 93306; 93350; 96365; 96375; 96376; 99218; 99285; A9585; Q9957; Q9967; A4216; C8928; G0378

== ENCOUNTER 2018-10-11 16:00 | Outpatient (RCR) | payer MEDICARE, SELFPAY | END 2018-10-11 23:59 | LOC: NS 16:00 | PROVIDERS: Family Provider Family Medicine; PCP Family Medicine; Visit Provider Nurse Practitioner Family | DX: E66.3 Overweight (principal); Z68.28 Body mass index [BMI] 28.0-28.9, adult; Z71.3 Dietary counseling and surveillance | CPT/HCPCS: 97802; 97803 ==

== ENCOUNTER 2019-06-07 19:59 | Emergency (ER) | payer MEDICARE, SELFPAY ==
[2019-06-07 20:00] VITALS: BP 145/114; PULSE 89; RESP 18; TEMP 36.7; O2SAT 99; BMI 28.5
--- NOTE | 2019-06-07 20:00 | RAD_ITS ---
STUDY: X-RAY CHEST REASON FOR EXAM: Female, 68 years old. Chest pain TECHNIQUE: Single frontal view of the chest. COMPARISON: 02/09/2017. FINDINGS: There is elevation of the left hemidiaphragm which is stable. Otherwise normal lung volumes. Lungs are clear. No infiltrates or effusions seen. Normal size heart. Normal mediastinum and janette. Normal visualized pulmonary arteries. Normal visualized aortic arch and descending thoracic aorta. Normal visualized thoracic spine. Normal visualized ribs, clavicles, and shoulders. There is no demonstrated abnormality of the visualized soft tissue structures of the upper abdomen. RAD/Chest 1 View (Portable) IMPRESSION: No acute chest disease. Electronically Signed: Abhinav Bernstein MD at 20:25 EDT , Service support ,
--- NOTE | 2019-06-07 20:00 | EKG12_ITS ---
Test Reason : CP Blood Pressure : / mmHG Vent. Rate : 090 BPM Atrial Rate : 090 BPM P-R Int : 206 ms QRS Dur : 090 ms QT Int : 366 ms P-R-T Axes : 057 -10 028 degrees QTc Int : 447 ms Normal sinus rhythm Normal ECG Confirmed by KARLI HITCHCOCK, MALIA ([id number]), clinical editor SUMIT LÓPEZ ([id number]) on 06/10/2019 3:20:11 PM Referred By: CHINYERE Confirmed By:MALIA CALVILLO MD
[2019-06-07] MEDS: Aspirin 81 MG TAB.CHEW 324 MG PO (20:12)
--- NOTE | 2019-06-07 20:13 | ED.VISSUMM ---
- ER Visit Summary Date of Service: 06/07/19 Chief Complaint: Chest pain History of Present Illness: The patient is a 68 F no seen past medical history. Patient states that around 6:15 PM the night she started having chest pain. Volar splint no shortness of breath. No diaphoresis. Said it was more of a pounding than pain. She denies any cardiac history. She did have a negative stress echo and echocardiogram about 1 year ago. She denies any recent exertional dyspnea or exertional chest pain. No history of DVT or PE. No recent travel, surgery or immobilization. Denies any pleuritic chest pain or hemoptysis. No leg pain or swelling. Physical Examination: Older female no acute distress vital signs are stable. She is afebrile. She does not look septic or toxic. HEENT exam unremarkable. Neck nontender. Lungs good auscultation bilaterally. No rales, rhonchi or wheezing. Chest wall she has reproducible left-sided chest wall tenderness. There is no ecchymosis or bruising no subcu air crepitance. She denies any trauma no chest wall. Abdomen soft nontender normal bowel sounds no peritoneal signs. No pulsatile mass. Patient is moving all 4 extremities. Neurovascular intact. Calves are nontender without edema or cords. Equal symmetrical radial pulses. Neurologically she is awake and alert with no focal motor deficits. Test Results: EKG sinus rhythm rate of 90 with no acute signs of MO or ischemia. One view chest x-ray read both by myself and the radiologist shows no acute abnormality. Normal cardiac silhouette mediastinum. CBC normal white count of 9. Hemoglobin 13. Chemistries unremarkable normal creatinine and gap. Troponin normal. Emergency Department Course and Treatment: Treated with p.o. aspirin. Clinically this appears to be chest wall pain. Otherwise she has a normal exam. Repeat exam at 9:31 PM patient is doing well. She is pain-free. Her current blood pressure is 138/86. States she is feeling better. She is less anxious. She had been in the ER earlier today with a patient but not as a patient. Clinically I do not think this is cardiac. I do not think she needs a repeat troponin. She had a negative stress stress test and echocardiogram a little over a year ago. She and her are comfortable being discharged home. Treatment Plan: Log blood pressures twice daily. Follow-up with primary care physician next week. Return if worse. Disposition: Discharge Impression: Acute chest pain with acute left chest wall pain This note was generated with [employer] dictation software. It may contain incorrect words, spelling, and punctuation that were not noted in review of the chart prior to signing ED Disposition - Plan for ED Patient: Referrals: Sanju Sheppard MD [Primary Care Provider] -
[2019-06-07 20:17] LABS: Absolute Neutrophil Count 3.7 X10^3/uL (2.0-7.7); Basophil# 0.07 X10^3/uL; Basophil% 0.7 % (0-1); Eosinophils% 4.1 % (0-5); Hematocrit 42.6 % (37-47); Hemoglobin 13.7 g/dL (12.0-15.0); Lymphocyte % 49.7 % (19-41); Mean Corp Hgb Conc 32.2 g/dL (32-36); Mean Corpuscular Hgb 29.8 pg (27.0-32.0); Mean Corpuscular Volume 92.8 fL (81-99); Mean Platelet Vol. 9.1 fl (6.2-12.0); Monocyte# 0.76 X10^3/uL; Monocyte% 7.7 % (0-10); NRBC Flagged by Analyzer 0 % (0-5); Neutrophil % 37.6 % (47-70); Platelet Count 274 K/mm3 (150-450); RBC Distribution Width CV 12.1 % (11.6-14.6); RBC Distribution Width SD 41.4 fl (35.1-43.9); Red Blood Count 4.59 M/mm3 (4.2-5.4); White Blood Count 9.9 K/mm3 (4.4-11.0)
[2019-06-07 20:35] LABS: Anion Gap 4 (5-15); BUN 15 mg/dL (7-18); BUN/Creat Ratio 16.3 RATIO (10-20); Calcium,Total 8.9 mg/dL (8.5-10.1); Chloride 106 mmol/L (98-107); Creatinine, Serum 0.92 mg/dL (0.55-1.02); EST Glomerular Filtration Rate 65 mL/min (>60); Est Glom Filt Rate - Afr Amer 78 mL/min (>60); Estimated Creatinine Clearance 49.76 ml/min; Glucose 94 mg/dL (74-106); Potassium 3.4 mmol/L (3.5-5.1); Sodium Level 139 mmol/L (136-145)
[2019-06-07 21:00] VITALS: BP 138/86; PULSE 71; RESP 17; O2SAT 98
[2019-06-07] MEDS: Acetaminophen 500 MG Tablet 1000 MG PO (21:23)
--- NOTE | 2019-06-07 21:36 | ED.DEP ---
ED Disposition - Plan for ED Patient: Disposition: Home or Assisted Living Instructions: CHEST PAIN, Uncertain Cause Referrals: Sanju Sheppard MD [Primary Care Provider] - 1 Week Additional Instructions: Because your blood pressures twice daily in the morning and in the evening. Record does ensure that your primary care physician next week. Return if feeling worse.
[2019-06-07 21:40] VITALS: BP 130/70; PULSE 70; RESP 14; O2SAT 97
== END 2019-06-07 21:50 | disposition home or self-care (01) ==
PROVIDERS: Emergency Provider Emergency Medicine; Family Provider Family Medicine; PCP Family Medicine
DX: R07.89 Other chest pain (principal)
CPT/HCPCS: 71045; 80048; 84484; 85025; 93005; 99285; A4216

== ENCOUNTER → 2019-06-21 16:15 | Outpatient (CLI) | payer MEDICARE, SELFPAY ==
[2019-06-07 20:00] VITALS: BMI 28.5
== END ==
PROVIDERS: Family Provider Family Medicine; PCP Family Medicine; Referring Provider Otolaryngology Otolaryngology/Facial Plastic Surgery; Visit Provider Otolaryngology Otolaryngology/Facial Plastic Surgery
DX: J32.9 Chronic sinusitis, unspecified (principal)
CPT/HCPCS: 87070; 87205

== ENCOUNTER → 2019-07-25 13:48 | Outpatient (CLI) | payer MEDICARE, SELFPAY ==
--- NOTE | 2019-07-25 13:51 | CT_ITS ---
STUDY: CT MAXILLOFACIAL SINUSES REASON FOR EXAM: Female, 68 years old. Sinusitis, history of headaches and hypertension. RADIATION DOSAGE (If Supplied By Facility): CTDIvol = ( 33.45 ) mGy, DLP = ( 738.73 ) mGycm TECHNIQUE: The patient was scanned in a multi detector CT scanner. High resolution axial imaging was performed without the administration of intravenous contrast material. Sagittal and coronal images were reconstructed. Individualized dose optimization techniques were used for this CT. COMPARISON: None. FINDINGS: FRONTAL SINUSES: Normal aeration, without mucosal inflammatory disease. ETHMOIDAL SINUSES: Partial mild mucosal thickening noted bilaterally. MAXILLARY SINUSES: There are bilateral air-fluid levels, more significant on the right compared to the left. SPHENOIDAL SINUSES: Normal aeration, without mucosal inflammatory disease. Bilateral mastoids are clear. There is patency of the bilateral maxillary infundibuli with normal uncinate processes, ethmoid bullae, and hiatus semilunaris. Normal bilateral middle turbinates. Normal bilateral inferior turbinates. There is mild deviation of the anterior osseous nasal septum, convexity to the left. There is patency of the bilateral nasal airways. The visualized osseous structures are normal. The visualized bilateral orbital contents are normal. There is atherosclerotic calcifications of the bilateral carotid arteries. CT/Sinus/Facial Bone IMPRESSION: Sinusitis involving the ethmoid and mastoid sinuses as described above. No acute fracture. For details see above report. Electronically Signed: Yahaira Calderon MD at 4:34 EST , Service support ,
== END ==
PROVIDERS: Family Provider Family Medicine; PCP Family Medicine; Referring Provider Otolaryngology Otolaryngology/Facial Plastic Surgery; Visit Provider Otolaryngology Otolaryngology/Facial Plastic Surgery
DX: J32.9 Chronic sinusitis, unspecified (principal)
CPT/HCPCS: 70486

== ENCOUNTER → 2020-02-27 09:44 | Outpatient (CLI) | payer MEDICARE, SELFPAY ==
--- NOTE | 2020-02-27 | RAD_ITS ---
STUDY: AIR-CONTRAST UPPER GI SERIES. REASON FOR EXAM: Female, 69 years old. Nausea for a couple of months, hx of ulcers, paraesophageal hernia repaired 2016, constipation/ diarrhea FLUOROSCOPY TIME (if supplied): ( 78 seconds ) minutes/seconds. 18 images were obtained. TECHNIQUE: The patient ingested barium. Multiple images of the esophagus, stomach and duodenum were obtained. COMPARISON: Comparison is made with prior examination dated June 06, 2017. FINDINGS: There is evidence of a small sliding hiatal hernia without gastroesophageal reflux. Once again, there is a tapering defect in the lower end of the esophagus in keeping with a prior Ezekiel fundoplication. The remainder of the stomach and duodenum are unremarkable. The patient ingested a 12 mm tablet of barium. The tablet is trapped within the hiatal hernia. RAD/Upper GI Dual Contrast IMPRESSION: Status post Tiago fundoplication. Small hiatal hernia. The 12 mm ingested tablet of barium is trapped within the hiatal hernia. Electronically Signed: Javi Aranda, at 12:33 EDT , Service support ,
== END ==
PROVIDERS: PCP Family Medicine; Referring Provider Nurse Practitioner Adult Health; Visit Provider Nurse Practitioner Adult Health
DX: R10.13 Epigastric pain (principal)
CPT/HCPCS: 74246

== ENCOUNTER 2020-06-22 02:35 | Emergency (ER) | payer MEDICARE, SELFPAY ==
[2020-06-22 02:35] VITALS: BP 152/87; PULSE 77; RESP 14; O2SAT 98
[2020-06-22 02:36] VITALS: BP 152/87; PULSE 71; RESP 13; TEMP 35.6; O2SAT 99; BMI 29.7
--- NOTE | 2020-06-22 02:51 | EKG12_ITS ---
Test Reason : DYSRHYTHMIA Blood Pressure : / mmHG Vent. Rate : 078 BPM Atrial Rate : 078 BPM P-R Int : 198 ms QRS Dur : 092 ms QT Int : 396 ms P-R-T Axes : 051 -05 034 degrees QTc Int : 451 ms Normal sinus rhythm Minimal voltage criteria for LVH, may be normal variant Borderline ECG Confirmed by KARLI HITCHCOCK, MALIA ([id number]), sound editor SUMIT LÓPEZ ([id number]) on 06/23/2020 12:57:23 PM Referred By: RAVI Confirmed By:MALIA CALVILLO MD
--- NOTE | 2020-06-22 02:54 | CT_ITS ---
STUDY: CTA OF THE BRAIN Within limits of contrast. REASON FOR EXAM: Female, 69 years old. MULLEN/TINGLING BOTH HANDS. Hx of migraines. Please dictate noncontrast brain as well RADIATION DOSAGE (If Supplied By Facility): CTDIvol = ( 27.93 ) mGy, DLP = ( 1204.72 ) mGycm TECHNIQUE: CT angiography was performed with a multi-detector CT scanner. Data acquisition was obtained from the skull base through the vertex following intravenous administration of IV 75mL Isovue-370. MIP images were reconstructed from the axial data set. Post-processing of the angiographic images was performed, with multiplanar reformation and 3D reconstruction. Individualized dose optimization techniques were used for this CT. COMPARISON: CT angiogram head March 26, 2018 , CT head March 26, 2018, MRI brain March 26, 2018, history of migraines right-sided weakness. FINDINGS: Normal bilateral petrous carotid arteries. Normal right cavernous carotid artery with a normal supraclinoid bifurcation. Normal left cavernous carotid artery with a normal supraclinoid bifurcation. Normal right A1 segments of the anterior cerebral artery. Normal left A1 segments of the anterior cerebral artery. Normal intact anterior communicating artery (ACOM). Normal bilateral A2 segments of the anterior cerebral arteries. Normal right M1 and M2 segments of the middle cerebral arteries, with a normal M1 bifurcation. Normal left M1 and M2 segments of the middle cerebral arteries, with a normal M1 bifurcation. Normal right posterior communicating artery (PCOM). Normal left posterior communicating artery (PCOM). Normal bilateral vertebral arteries. Normal basilar artery with a normal basilar bifurcation. The visualized bilateral superior cerebellar (SCA) arteries are normal. Normal bilateral P1, P2 and visualized P3 segments of the posterior cerebral arteries. There is no demonstrated aneurysm of the native of Alas. The noncontrasted CT head demonstrates mild atrophy. Within the left external capsule and a portion of the anterior limb of the left internal capsule there is subtle persistent low attenuating focus compatible with prior ischemic change. This was described on the prior MRI. There is a stable band of left greater than right cerebellar atrophy. There is ethmoid sinus mucosal thickening. There is a right middle turbinate janette bullosa. There is minimal frontal sinus mucosal thickening minimal fluid in the right sphenoid sinus. There is chronic appearing mucosal thickening in the left maxillary sinus. Since the prior study March 26, 2018 there is lesser air-fluid level within the right maxillary sinus. CT/CTA Head W/WO Contrast IMPRESSION: Normal native of Alas without a demonstrated aneurysm or hemodynamically significant stenosis. Mild atrophy. Evidence of small focus prior ischemic change within the left side basal ganglia no significant interval change since prior study. Chronic mild pansinusitis. Improved right maxillary sinusitis when compared to prior study. Electronically Signed: Rohini Cruz MD at 4:23 EDT Tel , Service support ,
[2020-06-22] MEDS: 0.9% Normal Saline 1,000 ML 1000 ML IV (03:04)
[2020-06-22] MEDS: DiphenhydrAMINE 50 MG/ML Syringe IV (03:04)
[2020-06-22] MEDS: Metoclopramide 10 MG/2 ML Vial IV (03:04)
[2020-06-22 03:11] LABS: Absolute Lymphocyte Count 4.68 X10^3/uL (0.83-4.51); Absolute Neutrophil Count 3.8 X10^3/uL (2.0-7.7); Basophil# 0.04 X10^3/uL; Basophil% 0.4 % (0-1); Eosinophils% 3.1 % (0-5); Hematocrit 40.3 % (37-47); Hemoglobin 12.7 g/dL (12.0-15.0); Lymphocyte # 4.68 X10^3/ul (4.0); Lymphocyte % 48.7 % (19-41); Mean Corp Hgb Conc 31.5 g/dL (32-36); Mean Corpuscular Volume 95.3 fL (81-99); Mean Platelet Vol. 9.5 fl (6.2-12.0); Monocyte# 0.81 X10^3/uL; Monocyte% 8.4 % (0-10); NRBC Flagged by Analyzer 0 % (0-5); Neutrophil # 3.76 X10^3/uL (2.7-7.7); Neutrophil % 39.2 % (47-70); Platelet Count 346 K/mm3 (150-450); RBC Distribution Width SD 45.1 fl (35.1-43.9); Red Blood Count 4.23 M/mm3 (4.2-5.4); White Blood Count 9.6 K/mm3 (4.4-11.0)
[2020-06-22 03:45] LABS: Anion Gap 4 (5-15); BUN 13 mg/dL (7-18); Calcium,Total 9.2 mg/dL (8.5-10.1); Chloride 106 mmol/L (98-107); Creatinine, Serum 0.87 mg/dL (0.55-1.02); EST Glomerular Filtration Rate 69 mL/min (>60); Est Glom Filt Rate - Afr Amer 84 mL/min (>60); Estimated Creatinine Clearance 51.91 ml/min; Glucose 92 mg/dL (74-106); Potassium 3.3 mmol/L (3.5-5.1); Sodium Level 140 mmol/L (136-145)
--- NOTE | 2020-06-22 03:49 | ED.VISSUMM ---
- ER Visit Summary Date of Service: 06/22/20 Chief Complaint: Headache History of Present Illness: The patient is a [address] Marcell Rojas and Dr. Trammell, a neurologist at [facility]. She reports that she has a headache that began yesterday at 11:00. It is gradually gotten worse. Is a throbbing pain is posterior to her eyes and her left roman catholic. Is 10 of 10 at worst 9-10 currently. Is worsened by light. She taken sumatriptan without relief. She denies any change in her vision. She reports she has been nauseated with this. She denies any vomiting. Patient reports that she is not having a chest pain or shortness of breath. She denies abdominal pain. She reports she had 2 episodes of diarrhea today. No blood in her stools or black tarry stools. She reports that she has left-sided neck pain that began approximately 2-1/2 hours after the onset of the headache. She reports that she had paresthesias in the fingertips of both hands earlier that is now resolved. She denies any numbness, tingling, or weakness. Physical Examination: Vitals: Stable. Afebrile. General: Well-nourished and well-developed. Head: Normocephalic atraumatic. HEENT: No tenderness palpation over temporal arteries bilaterally. Neck: Supple, no lymphadenopathy. No JVD. Nontender. Cardiovascular: Regular rate and rhythm. No murmurs. Respiratory: No respiratory distress. Clear to auscultation bilaterally. Abdominal: Soft, nontender, nondistended, normal bowel sounds. No guarding, rebound, or peritoneal signs. Back: Nontender. Extremities: Nontender, no edema. Mild tenderness to palpation to the left calf. There is no palpable cord. No Homans sign. No edema. 2+ dorsalis pedis pulse bilaterally. Normal sensation to light touch throughout. Skin: Normal color, no rash. Neurologic: Alert and oriented ?3. Cranial nerves II through XII are intact. Normal strength and sensation. NIH is 0. Psych: Normal affect. Test Results: EKG is sinus at [address] changes. CBC shows 7 neutrophils of 39 and lymphocytes of 49. Chem-7 shows potassium 3.3. Troponin is negative. Clinical Impression(s) from Imaging Studies Head CTA 06/22/20 02:54 IMPRESSION: Normal redding of Alas without a demonstrated aneurysm or hemodynamically significant stenosis. Mild atrophy. Evidence of small focus prior ischemic change within the left side basal ganglia no significant interval change since prior study. Chronic mild pansinusitis. Improved right maxillary sinusitis when compared to prior study. Electronically Signed: Rohini Cruz MD at 4:23 EDT Tel , Service support , Emergency Department Course and Treatment: Patient had an IV placed. She has been a liter normal saline. She was given Reglan and Benadryl IV. On repeat exam she reports that her headache is resolved but that my eyes itch. Treatment Plan: Patient be discharged instructions to follow-up with her primary care physician and/or neurologist in 1 to 2 days if not improving. Return to the emergency department for any worsening symptoms. Disposition: To home in improved and stable condition. Impression: 1. Cephalgia. This note was generated with [employer] dictation software. It may contain incorrect words, spelling, and punctuation that were not noted in review of the chart prior to signing ED Disposition - Plan for ED Patient: Instructions: ED Headache Unspecified Referrals: Sanju Sheppard MD [Primary Care Provider] - 1-2 Days if not improving
[2020-06-22] MEDS: Morphine 4 MG/ML Syringe IV (04:13)
[2020-06-22 04:41] VITALS: BP 148/83; PULSE 57; RESP 18; O2SAT 99
== END 2020-06-22 04:42 | disposition home or self-care (01) ==
LOC: ED 02:58
PROVIDERS: Emergency Provider Emergency Medicine; PCP Family Medicine
DX: R51.9 Headache, unspecified (principal); M54.2 Cervicalgia; R19.7 Diarrhea, unspecified; J45.909 Unspecified asthma, uncomplicated; Z79.899 Other long term (current) drug therapy
CPT/HCPCS: 70496; 80048; 84484; 85025; 93005; 96361; 96374; 96375; 99282; 99285; Q9967; A4216

== ENCOUNTER 2021-01-19 16:43 | Observation (INO) | payer MEDICARE, SELFPAY ==
[2021-01-19 16:44] VITALS: BP 177/81; PULSE 86; RESP 15; TEMP 36.3; O2SAT 100; BMI 30.1
--- NOTE | 2021-01-19 17:05 | EKG12_ITS ---
Test Reason : PALPS Blood Pressure : / mmHG Vent. Rate : 079 BPM Atrial Rate : 079 BPM P-R Int : 196 ms QRS Dur : 088 ms QT Int : 378 ms P-R-T Axes : 050 -04 030 degrees QTc Int : 433 ms Normal sinus rhythm Minimal voltage criteria for LVH, may be normal variant Borderline ECG Confirmed by PARAS HITCHCOCK, DWAYNE ([id number]), scientific editor CHRISTINA LAWRENCE ([id number]) on 01/21/2021 1:28:25 PM Referred By: RIKA Confirmed By:DWAYNE CRAIN MD
--- NOTE | 2021-01-19 17:06 | EX.ED.DYSGE1 ---
HPI History of Present Illness Chief Complaint: Palpitations Informant: patient Narrative Narrative: 70-year-old female presenting with chest pain and palpitations. She states that this has been ongoing for the past several days and has been intermittent. She does not recall anything that makes this better or worse. She complains of occasional palpitations and skipping beats. She also complains of pressure heaviness in her mid chest. She denies shortness of breath. She has chronic nausea, vomiting from gastroparesis. She states she has occasionally felt diaphoretic. She is not a smoker. She denies PE/DVT risk factors. Prior similar symptoms: No Recent Illness/Hospitalization: No PFSH PFSH Medical History Gastroparesis IBS (irritable bowel syndrome) Migraine Home Medications sumatriptan succinate 100 mg PO TID PRN PRN 10/22/15 [History Last Taken 03/26/18 07:30] azelastine 1 drp EACH EYE BID PRN 03/26/18 [History Last Taken 03/25/18] citalopram 40 mg PO DAILY 03/26/18 [History Last Taken 03/25/18] dicyclomine 20 mg PO TIDCM 03/26/18 [History Last Taken 03/25/18] loperamide 2 mg PO Q4H PRN PRN 03/26/18 [History Last Taken 03/25/18] multivitamin [Multiple Vitamins] 1 ea PO DAILY 03/26/18 [History Last Taken 03/26/18] Allergy/AdvReac Type Severity Reaction Status Date / Time venlafaxine HCl Allergy Hives Verified 01/19/21 16:46 [From Effexor] fluticasone propionate AdvReac headache Verified 01/19/21 16:46 [From Flonase] Surgical History History of esophageal hernia repair Social History Smoking Status: Never smoker ROS ROS ED Constitutional Constitutional ED: Denies fever(s) Eyes Eyes: Denies change in vision ENT ENT ED: Denies rhinorrhea or sore throat Cardiovascular Cardiovascular: Reports chest pain, palpitations and racing heartbeat Respiratory/Chest Respiratory/Chest: Denies cough or dyspnea Gastrointestinal Gastrointestinal: Reports nausea and vomiting; Denies abdominal pain or diarrhea Genitourinary Genitourinary ED: Denies dysuria Musculoskeletal Musculoskeletal: Denies myalgias Integumentary Denies rash Neurologic Neurologic: Denies headache(s) Endocrine Endocrinology: Denies polyuria EXAM Physical Exam Const Vital Signs: 01/19/21 16:44 01/19/21 17:07 01/19/21 17:53 Temperature 97.3 F L Temperature Source Temporal Pulse Rate 86 71 Respiratory Rate 15 16 Respiratory Effort Normal Respiratory Pattern Normal Blood Pressure 177/81 H 132/74 H Blood Pressure Mean 113 93 Pulse Ox 100 99 Oxygen Delivery Method Room Air Nasal Cannula Oxygen Flow Rate (L/min) 2 Positive well nourished and well developed General Appearance ED: well developed HEENT Reports normocephalic and head/scalp atraumatic Eyes PERRL and EOMs intact bilaterally Neck supple General: Negative for tenderness Chest Wall inspection of chest normal Resp normal respiratory effort and clear to auscultation bilaterally Cardio regular rate and regular rhythm GI non-tender and non-distended Palpation: soft; Negative for guarding or rebound tenderness present no CVA tenderness Extremity normal to inspection Neuro oriented x3 Sensorium / Orientation: alert Psych mental status grossly normal MDM MDM MDM Narrative Medical decision making narrative: Patient given aspirin, morphine, Zofran. She is chest pain-free on reevaluation. Will discuss with hospitalist for observation. Lab Data Attestation: I reviewed the patient's lab results. Labs: Laboratory Results - last 24 hr 01/19/21 01/19/21 16:57 16:57 WBC 9.4 RBC 4.24 Hgb 12.4 Hct 39.6 MCV 93.4 MCH 29.2 MCHC 31.3 L RDW Std Deviation 42.5 RDW Coeff of Alejandra 12.3 Plt Count 372 MPV 9.1 Immature Gran % (Auto) 0.300 Neut % (Auto) 52.2 Lymph % (Auto) 35.9 [place] % (Auto) 8.1 Eos % (Auto) 2.9 Baso % (Auto) 0.6 Absolute Neuts (auto) 4.9 Absolute Lymphs (auto) 3.38 Nucleated RBC % 0 Sodium 139 Potassium 3.8 Chloride 106 Carbon Dioxide 31.0 Anion Gap 2 L BUN 22 H Creatinine 0.76 Estim Creat Clear Calc 44.54 Est GFR (MDRD) Af Amer 98 Est GFR (MDRD) Non-Af 81 BUN/Creatinine Ratio 29.1 H Glucose 108 H Calcium 9.1 Troponin I < 0.015 Lipase 123 Radiography Chest X-Ray - ED: 1 View, Read by ED Physician and Read by Radiologist EKG Initial EKG: Attestation: I personally reviewed and interpreted this EKG as follows: Interpretation: Sinus Rhythm and No Acute Injury Pattern Prior EKG tracings: available for review Prior: Unchanged Discharge Plan Dx/Rx/DC Orders Clinical Impression: Chest pain Disposition Disposition: Acute Care Hospital [facility]
[2021-01-19 17:20] LABS: Absolute Lymphocyte Count 3.38 X10^3/uL (0.83-4.51); Absolute Neutrophil Count 4.9 X10^3/uL (2.0-7.7); Basophil# 0.06 X10^3/uL; Basophil% 0.6 % (0-1); Eosinophil# 0.27 X10^3/uL; Eosinophils% 2.9 % (0-5); Hematocrit 39.6 % (37-47); Hemoglobin 12.4 g/dL (12.0-15.0); Lymphocyte # 3.38 X10^3/ul (0.83-4.51); Lymphocyte % 35.9 % (19-41); Mean Corp Hgb Conc 31.3 g/dL (32-36); Mean Corpuscular Hgb 29.2 pg (27.0-32.0); Mean Corpuscular Volume 93.4 fL (81-99); Mean Platelet Vol. 9.1 fl (6.2-12.0); Monocyte# 0.76 X10^3/uL; Monocyte% 8.1 % (0-10); NRBC Flagged by Analyzer 0 % (0-5); Neutrophil # 4.91 X10^3/uL (2.7-7.7); Neutrophil % 52.2 % (47-70); Platelet Count 372 K/mm3 (150-450); RBC Distribution Width CV 12.3 % (11.6-14.6); RBC Distribution Width SD 42.5 fl (35.1-43.9); Red Blood Count 4.24 M/mm3 (4.2-5.4); White Blood Count 9.4 K/mm3 (4.4-11.0)
[2021-01-19] MEDS: Aspirin 81 MG TAB.CHEW 324 MG PO (17:26)
[2021-01-19] MEDS: Morphine 4 MG/ML Syringe IV (17:29)
[2021-01-19] MEDS: Ondansetron 4 MG/2 ML Vial IV (17:29)
[2021-01-19 17:34] LABS: Anion Gap 2 (5-15); BUN 22 mg/dL (7-18); BUN/Creat Ratio 29.1 RATIO (10-20); Calcium,Total 9.1 mg/dL (8.5-10.1); Chloride 106 mmol/L (98-107); Creatinine, Serum 0.76 mg/dL (0.55-1.02); EST Glomerular Filtration Rate 81 mL/min (>60); Est Glom Filt Rate - Afr Amer 98 mL/min (>60); Estimated Creatinine Clearance 44.54 ml/min; Glucose 108 mg/dL (74-106); Lipase 123 U/L (73-393); Potassium 3.8 mmol/L (3.5-5.1); Sodium Level 139 mmol/L (136-145)
--- NOTE | 2021-01-19 17:39 | RAD_ITS ---
HISTORY: chest pain EXAMINATION/TECHNIQUE: XR Chest 1 View: Portable upright AP chest x-ray COMPARISON: 06/07/19 FINDINGS: LINES/DEVICES: None. LUNGS: No consolidation, edema or effusion. No pneumothorax. MEDIASTINUM AND CARDIOVASCULAR STRUCTURES: Stable cardiomegaly. BONES AND SOFT TISSUES: No acute bony abnormalities. RAD/Chest 1 View (Portable) IMPRESSION: Cardiomegaly without radiographic evidence of acute cardiopulmonary disease. at 1821 Reported and signed by: Cy Acuna MD Electronically Signed: Cy Acuna MD at 18:20 EDT Tel , Service support ,
[2021-01-19 17:53] VITALS: BP 132/74; PULSE 71; RESP 16; O2SAT 99
--- NOTE | 2021-01-19 18:11 | NURSING ---
PCU OBS NAN MARTINEZ
--- NOTE | 2021-01-19 18:17 | HP.PCM.HOS_ITS ---
[facility] - [facility] General Date of Admission: 01/19/21 Chief Complaint: Palpitation, chest pain. 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 Her symptoms sta rted over the last week, intermittent, started with chest pain, described as chest heaviness, 6 out of 10 in severity, not radiating, associated with palpitation and sweating and without aggravating or relieving factors. She reported skipped beats as well. She denies dizziness or lightheadedness. She denies syncope or presyncope. According to the patient, she had a history of gastroparesis and GERD and she has been on Nexium. In the emergency department, her vitals were stable. Her routine blood work was unremarkable. EKG revealed normal sinus rhythm, no acute ischemic changes. Chest x-ray showed no acute findings, official report is pending. Patient is being admitted for atypical c hest pain for evaluation. [facility] Medical History Gastroparesis IBS (irritable bowel syndrome) Migraine Home Medications sumatriptan succinate 100 mg PO TID PRN PRN 10/22/15 [History Last Taken 03/26/18 07:30] azelastine 1 drp EACH EYE BID PRN 03/26/18 [History Last Taken 03/25/18] citalopram 40 mg PO DAILY 03/26/18 [History Last Taken 03/25/18] dicyclomine 20 mg PO TIDCM 03/26/18 [History Last Taken 03/25/18] loperamide 2 mg PO Q4H PRN PRN 03/26/18 [History Last Taken 03/25/18] multivitamin [Multiple Vitamins] 1 ea PO DAILY 03/26/18 [History Last Taken 03/26/18] Allergy/AdvReac Type Severity Reaction Status Date / Time venlafaxine HCl Allergy Hives Verified 01/19/21 16:46 [From Effexor] fluticasone propionate AdvReac headache Verified 01/19/21 16:46 [From Flonase] no significant family history Surgical History History of esophageal hernia repair Social History (Updated 01/19/21 @ 18:[address] Lita Hernandez MD) Smoking Status: Never smoker details: Drinks alcohol occasionally. ROS Constitutional Constitutional: Denies anorexia, chills, fatigue, fever(s) or malaise Eyes Eyes: Denies blurry vision, change in eye color, change in vision, double vision or eye pain ENT HEENT: Denies ear pain, epistaxis, headache(s), nasal congestion, post nasal drip or sore throat Cardiovascular Cardiovascular: Reports chest pain and palpitations; Denies dyspnea on exertion, edema, lightheadedness, orthopnea, paroxysmal nocturnal dyspnea or syncope Respiratory/Chest Respiratory/Chest: Denies cough, dyspnea, hemoptysis, productive cough, shortness of breath at rest, shortness of breath with exertion or wheezing Gastrointestinal Gastrointestinal: Denies abdominal pain, constipation, diarrhea, hematemesis, hematochezia, melena, nausea or vomiting Genitourinary Genitourinary: Denies burning urination, dysuria, hematuria, urinary hesitancy or urinary urgency Musculoskeletal Musculoskeletal: Denies arthralgias, back pain, joint pain, joint swelling, myalgias or neck pain Neurologic Neurologic: Denies confusion, dizziness, focal weakness, headache(s), numbness, paresthesias, seizures, tingling or tremor(s) Psychiatric Psychiatric: Denies anxiety, depression, homicidal ideation or suicidal ideation Endocrine Endocrinology: Denies change in body appearance, cold intolerance, heat intolerance, polydipsia or polyuria Hematologic/Lymphatic Hematologic/Lymphatic: Reports other; Denies easy bleeding, easy bruising or ly mphadenopathy Allergic/Immunologic Allergic/Immunologic: Denies itchy eyes, rhinitis, throat swelling, tongue swelling, hives, urticaria or wheezing Vital Signs Vital Signs Vital Signs: 01/19/21 16:44 01/19/21 17:07 01/19/21 17:53 Temperature 97.3 F L Temperature Source Temporal Pulse Rate 86 71 Respiratory Rate 15 16 Respiratory Effort Normal Respiratory Pattern Normal Blood Pressure 177/81 H 132/74 H Blood Pressure Mean 113 93 Pulse Ox 100 99 Oxygen Delivery Method Room Air Nasal Cannula Oxygen Flow Rate (L/min) 2 Physical Exam Const alert, oriented x3, no apparent distress and no limitations General Appearance: cooperative, comfortable and well kempt HEENT normocephalic, head/scalp atraumatic and moist oral mucous membranes Head and Scalp: normocephalic and atraumatic Eyes PERRL, EOMs intact bilaterally, conjunctivae normal and no scleral icterus General Eye: normal appearance of both eyes Periorbital: periorbital findings normal Neck no lymphadenopathy, supple, no meningeal signs, no JVD and no carotid bruits General: trachea midline Thyroid: thyroid normal Resp normal respiratory effort, normal air movement and clear to auscultation bilaterally Auscultation: Negative for crackles, rales, rhonchi or wheezes Cardio regular rate, regular rhythm, S1 normal heart sound, S2 normal heart sound, no murmurs and no JVD Peripheral Pulses: pulses 2+ throughout GI normal to inspection, nondistended, normoactive bowel sounds, soft to palpation, non-tender and non-distended; Negative for hepatosplenomegaly Auscultation: normoactive bowel sounds Extremity normal to inspection, full ROM and no clubbing, cyanosis or edema Skin no rashes or lesions noted, no wounds and no petechiae Neuro oriented x3, CN's II-XII intact bilaterally and moves all extremities Sensorium / Orientation: alert Speech: speech normal Motor Exam: strength 5/5 throughout Psych mental status grossly normal, affect normal and denies hallucinations Lab / Micro Data Result Diagrams: 01/19/21 16:57 01/19/21 16:57 Labs: Laboratory Results - last 24 hr 01/19/21 01/19/21 16:57 16:57 WBC 9.4 RBC 4.24 Hgb 12.4 Hct 39.6 MCV 93.4 MCH 29.2 MCHC 31.3 L RDW Std Deviation 42.5 RDW Coeff of Alejandra 12.3 Plt Count 372 MPV 9.1 Immature Gran % (Auto) 0.300 Neut % (Auto) 52.2 Lymph % (Auto) 35.9 [place] % (Auto) 8.1 Eos % (Auto) 2.9 Baso % (Auto) 0.6 Absolute Neuts (auto) 4.9 Absolute Lymphs (auto) 3.38 Nucleated RBC % 0 Sodium 139 Potassium 3.8 Chloride 106 Carbon Dioxide 31.0 Anion Gap 2 L BUN 22 H Creatinine 0.76 Estim Creat Clear Calc 44.54 Est GFR (MDRD) Af Amer 98 Est GFR (MDRD) Non-Af 81 BUN/Creatinine Ratio 29.1 H Glucose 108 H Calcium 9.1 Troponin I < 0.015 Lipase 123 Assessment & Plan Assessment/Plan (1) Chest pain: (2) GERD (gastroesophageal reflux disease): (3) Complicated migraine: PLAN: This is a 70 years old female patient presented to the emergency room because of palpitation and chest pain and she is being admitted for atypical chest pain for evaluation. #1 atypical chest pain: Initial EKG showed no acute ischemic changes. First tr oponin is negative. Chest x-ray without acute findings, official report is pending. Her vital signs are stable. Plan: Admit to PCU for observation, cardiac monitoring, serial cardiac enzymes, nuclear stress test tomorrow morning if cardiac enzymes are negative, IV fluids, Tylenol as needed, Zofran as needed, sublingual nitro as needed. #2 GERD/gastroparesis: Start Protonix twice daily, Zofran as needed. #3 migraine: Continue sumatriptan. #4 depression: Continue citalopram. #5 DVT prophylaxis: Subcu Lovenox. This note was generated with [employer] dictation software. It may contain incorrect words, spelling, and punctuation that were not noted in checking the note before signing. Visit Charges OBSV E&M: 01127 Initial observation care L2
[2021-01-19 18:28] VITALS: BP 114/97; PULSE 67; RESP 16; TEMP 36.3; O2SAT 99
[2021-01-19 19:22] VITALS: BMI 30.2
[2021-01-19 19:23] VITALS: BP 135/69; PULSE 69; RESP 16; TEMP 36.6; O2SAT 96
[2021-01-19 19:28] VITALS: PULSE 69
[2021-01-19 19:38] VITALS: RESP 16; O2SAT 96
[2021-01-19] MEDS: 0.9% Normal Saline 1,000 ML 75 ML IV (20:21)
[2021-01-19] MEDS: CLARIFY ORDER NOTE ×2 (22:18→22:21)
[2021-01-19] MEDS: Pantoprazole Sodium 40 MG Tablet PO (22:34)
[2021-01-19] MEDS: Zolpidem Tartrate 5 MG Tablet PO (22:50)
[2021-01-19] MEDS: 0.9% Saline Lock 10 ML Syringe IV (22:51)
[2021-01-20 00:06] VITALS: BP 114/62; PULSE 64; RESP 16; TEMP 36.8; O2SAT 96
--- NOTE | 2021-01-20 05:48 | EKG12_ITS ---
Test Reason : CP ADMISSION Blood Pressure : / mmHG Vent. Rate : 063 BPM Atrial Rate : 063 BPM P-R Int : 198 ms QRS Dur : 084 ms QT Int : 422 ms P-R-T Axes : 056 -02 026 degrees QTc Int : 431 ms Normal sinus rhythm Normal ECG When compared with ECG of 19-JAN-2021 16:59, MANUAL COMPARISON REQUIRED, DATA IS UNCONFIRMED Confirmed by PARAS HITCHCOCK, DWAYNE ([id number]), market editor CHRISTINA LAWRENCE ([id number]) on 01/21/2021 1:32:58 PM Referred By: JUAN Confirmed By:DWAYNE CRAIN MD
--- NOTE | 2021-01-20 05:55 | EKG12_ITS ---
Test Reason : AM EKG Blood Pressure : / mmHG Vent. Rate : 071 BPM Atrial Rate : 071 BPM P-R Int : 214 ms QRS Dur : 084 ms QT Int : 410 ms P-R-T Axes : 052 -13 014 degrees QTc Int : 445 ms Sinus rhythm with 1st degree A-V block Otherwise normal ECG When compared with ECG of 19-JAN-2021 19:31, MANUAL COMPARISON REQUIRED, DATA IS UNCONFIRMED Confirmed by PARAS HITCHCOCK, DWAYNE ([id number]), market editor CHRISTINA LAWRENCE ([id number]) on 01/20/2021 1:00:12 PM Referred By: JUAN Confirmed By:DWAYNE CRAIN MD
[2021-01-20 06:03] VITALS: BP 139/65; PULSE 66; RESP 16; TEMP 36.6; O2SAT 97
[2021-01-20 06:59] VITALS: PULSE 59
[2021-01-20 08:26] VITALS: O2SAT 95
[2021-01-20 10:02] VITALS: BP 155/87; PULSE 76; RESP 18; TEMP 36.6; O2SAT 98
[2021-01-20] MEDS: DULoxetine Hcl 60 MG Capsule PO (10:06)
[2021-01-20] MEDS: Dicyclomine 10 MG Capsule 20 MG PO (10:06)
[2021-01-20] MEDS: Pantoprazole Sodium 40 MG Tablet PO (10:06)
--- NOTE | 2021-01-20 11:21 | STRESSREP ---
Stress Test Report Exercise myocardial perfusion stress test. 70-year-old lady with a history of chest pain. Stress protocol: Resting EKG demonstrates normal sinus rhythm with a rate of 57 bpm normal intervals are noted resting blood pressure is 140/82 mmHg. the patient sized according to regular Moi protocol for 5 minutes and 11 seconds the maximum heart rate attained was 129 bpm which was 85% of maximum predicted heart rate the maximum workload was 7 metabolic equivalents. At rest there were no ST or T wave changes noted to suggest ischemia and at peak exercise upsloping ST changes were noted with did not meet the criteria for ischemia the test was terminated due to leg discomfort there was minimal chest pain noted. Myocardial perfusion protocol. 11.0 mCi of technetium 99m sestamibi was injected at rest. The patient exercised according to regular Moi protocol and at peak exercise 33.3 mCi of technetium 99m sestamibi was injected stress images were obtained stress and rest images were reconstructed and compared in the short axis vertical long horizontal long axis. Gated images were also obtained for Perfusion SPECT analysis: Review of the stress images demonstrate normal uptake of tracer noted in all areas of the myocardium. The resting images similarly demonstrated normal uptake of tracer noted in all areas of the myocardium. No areas of reversibility are noted to suggest ischemia and no previous infarct is noted. Gated SPECT analysis: The gated ejection fraction is 72%. Conclusion: Normal exercise myocardial perfusion stress test at a moderate workload. Preserved ejection fraction.
--- NOTE | 2021-01-20 11:30 | PCM.DC ---
Discharge Instructions Diet Discharge Diet: No restrictions Activity Discharge Activity: Return to Normal Activity Dressing / Incision Call your doctor if you observe: Shortness of breath, Dizziness and Chest pain Follow Up Care Test Results: Test results from this visit will be discussed in further detail at your follow-up appointment, if applicable. Discharge Plan Admission Admit Date/Time: 01/19/21 18:15 Primary Reason for Your Visit: Chest pain Attending Provider: Liz Ambrose Primary Care Provider: Sanju Sheppard Discharge Orders/Prescriptions Prescriptions: New pantoprazole 40 mg Tablet,Delayed Release (Dr/Ec) 40 mg PO BID Qty: 60 RF: 0 Continued sumatriptan succinate 100 MG tablet 100 mg PO TID PRN PRN (Reason: Migraine Symptoms) RF: 0 dicyclomine 10 MG capsule 20 mg PO TIDCM RF: 0 azelastine 6 ML drops 1 drp Each Eye BID PRN (Reason: ITCHING/PRESSURE) RF: 0 multivitamin [Multiple Vitamins] 1 EACH tablet 1 ea PO DAILY RF: 0 loperamide 2 MG capsule 2 mg PO Q4H PRN PRN (Reason: Diarrhea) RF: 0 duloxetine 60 mg capsule,delayed release(DR/EC) 60 mg PO DAILY RF: 0 Aimovig Autoinjector 70 mg/mL auto-injector 70 mg subcut QMONTH RF: 0 diphenhydramine-acetaminophen [Acetaminophen PM] 25-500 mg Tablet 2 tab PO QHS PRN (Reason: Sleep) RF: 0 Referrals / Follow Up: Sanju Sheppard MD [Primary Care Provider] - In 1 Week Disposition Disposition (needs filled in before D/C Order can be placed): Home, self care
--- NOTE | 2021-01-20 11:34 | DS.PCM_ITS ---
Documented by User: Lily Cotto NP, LADIES ATTENDANT-C 01/20/21 11:39 Providers Date of Admission: 01/19/21 Date of Discharge: 01/20/21 Primary Care Physician: Dr. Sanju Sheppard MD Reason For Visit: ATYPICAL CHEST PAIN Diagnosis Discharge Diagnosis (1) Chest pain: Status: Acute Code(s): R07.9 - Chest pain, unspecified (2) GERD (gastroesophageal reflux disease): Status: Chronic Code(s): K21.9 - Gastro-esophageal reflux disease without esophagitis (3) Complicated migraine: Status: Chronic Code(s): G43.109 - Migraine with aura, not intractable, without status migrainosus Medications at Discharge Home Medications sumatriptan succinate 100 mg PO TID PRN PRN 10/22/15 azelastine 1 drp EACH EYE BID PRN 03/26/18 dicyclomine 20 mg PO TIDCM 03/26/18 loperamide 2 mg PO Q4H PRN PRN 03/26/18 multivitamin [Multiple Vitamins] 1 ea PO DAILY 03/26/18 Aimovig Autoinjector 70 mg SUBCUT QMONTH 01/19/21 diphenhydramine-acetaminophen [Acetaminophen PM] 2 tab PO QHS PRN 01/19/21 duloxetine 60 mg PO DAILY 01/19/21 pantoprazole 40 mg PO BID #60 tab 01/20/21 Hospital Course Operations None Procedures Nuclear stress test Summary of Care Provided Minutes Spent on Discharge: 35 Hospital Course: Patient is a 70-year-old female admitted 01/19/2021 due to chest pain and palpitations. 1. Chest pain, ACS ruled out-troponin negative. EKG without ST-T changes. No arrhythmias on telemetry. Patient underwent nuclear stress test which was negative for ischemia. Symptoms may be secondary to chronic reflux/gastroparesis. Initiated on PPI. Follow-up with PCP in 1 week. 2. GERD/gastroparesis-initiated on a PPI. 3. Chronic migraines-on sumatriptan. 4. Depression-on citalopram. Patient seen and examined prior to discharge. Physical assessment as noted below. Patient is stable for discharge with follow up recommendations as noted above. This patient was seen by DEVANTE Hodges under the supervision of Dr. Ambrose. Physical Exam Const alert, oriented x3 and no apparent distress Orientation / Consciousness: awake, oriented to person, oriented to place and oriented to time HEENT normocephalic and moist oral mucous membranes Eyes PERRL, EOMs intact bilaterally and conjunctivae normal Neck no lymphadenopathy Resp normal respiratory effort and clear to auscultation bilaterally Cardio regular rate, regular rhythm and no murmurs Peripheral Pulses: pulses 2+ throughout GI normal to inspection, nondistended, normoactive bowel sounds, non-tender and non -distended Extremity normal to inspection Skin no rashes or lesions noted Lesions: no lesions Rashes: no rashes Trauma: no lacerations or abrasions Neuro oriented x3 Sensorium / Orientation: awake and alert Psych affect normal ABG / Lab / Microbiology Data Result Diagrams: 01/19/21 16:57 01/19/21 16:57 Laboratory: Laboratory Results - last 24 hr 01/19/21 01/19/21 01/19/21 16:57 16:57 20:15 WBC 9.4 RBC 4.24 Hgb 12.4 Hct 39.6 MCV 93.4 MCH 29.2 MCHC 31.3 L RDW Std Deviation 42.5 RDW Coeff of Alejandra 12.3 Plt Count 372 MPV 9.1 Immature Gran % (Auto) 0.300 Neut % (Auto) 52.2 Lymph % (Auto) 35.9 [place] % (Auto) 8.1 Eos % (Auto) 2.9 Baso % (Auto) 0.6 Absolute Neuts (auto) 4.9 Absolute Lymphs (auto) 3.38 Nucleated RBC % 0 Sodium 139 Potassium 3.8 Chloride 106 Carbon Dioxide 31.0 Anion Gap 2 L BUN 22 H Creatinine 0.76 Estim Creat Clear Calc 44.54 Est GFR (MDRD) Af Amer 98 Est GFR (MDRD) Non-Af 81 BUN/Creatinine Ratio 29.1 H Glucose 108 H Calcium 9.1 Troponin I < 0.015 < 0.015 Lipase 123 01/19/21 23:00 WBC RBC Hgb Hct MCV MCH MCHC RDW Std Deviation RDW Coeff of Alejandra Plt Count MPV Immature Gran % (Auto) Neut % (Auto) Lymph % (Auto) [place] % (Auto) Eos % (Auto) Baso % (Auto) Absolute Neuts (auto) Absolute Lymphs (auto) Nucleated RBC % Sodium Potassium Chloride Carbon Dioxide Anion Gap BUN Creatinine Estim Creat Clear Calc Est GFR (MDRD) Af Amer Est GFR (MDRD) Non-Af BUN/Creatinine Ratio Glucose Calcium Troponin I < 0.015 Lipase Radiography Diagnostic Testing: Radiology Impression Chest X-Ray 01/19/21 17:39 IMPRESSION: Cardiomegaly without radiographic evidence of acute cardiopulmonary disease. at 1821 Reported and signed by: Cy Acuna MD Electronically Signed: Cy Acuna MD at 18:20 EDT Tel , Service support , D/C Instructions Discharge Diet: No restrictions Discharge Activity: Return to Normal Activity Call your doctor if you observe: Shortness of breath, Dizziness and Chest pain Meaningful Use Info Meaningful Use Diagnoses (Choose all that apply): None applicable Discharge Plan Admission Admit Date/Time: 01/19/21 18:15 Primary Reason for Your Visit: Chest pain Attending Provider: Liz Ambrose Primary Care Provider: Sanju Sheppard Instructions Additional Instructions / Restrictions: Patient Problems: Altered Health Status related to Hospitalization Patient Goals: *Optimal Level of Health *Keep Appointments *Medication Compliance *Remain Safe Discharge Orders/Prescriptions Prescriptions: New pantoprazole 40 mg Tablet,Delayed Release (Dr/Ec) 40 mg PO BID Qty: 60 RF: 0 Continued sumatriptan succinate 100 MG tablet 100 mg PO TID PRN PRN (Reason: Migraine Symptoms) RF: 0 dicyclomine 10 MG capsule 20 mg PO TIDCM RF: 0 azelastine 6 ML drops 1 drp Each Eye BID PRN (Reason: ITCHING/PRESSURE) RF: 0 multivitamin [Multiple Vitamins] 1 EACH tablet 1 ea PO DAILY RF: 0 loperamide 2 MG capsule 2 mg PO Q4H PRN PRN (Reason: Diarrhea) RF: 0 duloxetine 60 mg capsule,delayed release(DR/EC) 60 mg PO DAILY RF: 0 Aimovig Autoinjector 70 mg/mL auto-injector 70 mg subcut QMONTH RF: 0 diphenhydramine-acetaminophen [Acetaminophen PM] 25-500 mg Tablet 2 tab PO QHS PRN (Reason: Sleep) RF: 0 Referrals / Follow Up: Sanju Sheppard MD [Primary Care Provider] - In 1 Week Disposition Disposition (needs filled in before D/C Order can be placed): Home, self care Documented by User: Dr. Liz Ambrose MD 01/22/21 13:16 Providers Date of Admission: 01/19/21 Date of Discharge: 01/20/21 Reason For Visit: ATYPICAL CHEST PAIN Medications at Discharge Home Medications sumatriptan succinate 100 mg PO TID PRN PRN 10/22/15 azelastine 1 drp EACH EYE BID PRN 03/26/18 dicyclomine 20 mg PO TIDCM 03/26/18 loperamide 2 mg PO Q4H PRN PRN 03/26/18 multivitamin [Multiple Vitamins] 1 ea PO DAILY 03/26/18 Aimovig Autoinjector 70 mg SUBCUT QMONTH 01/19/21 diphenhydramine-acetaminophen [Acetaminophen PM] 2 tab PO QHS PRN 01/19/21 duloxetine 60 mg PO DAILY 01/19/21 pantoprazole 40 mg PO BID #60 tab 01/20/21 ABG / Lab / Microbiology Data Result Diagrams: 01/19/21 16:57 01/19/21 16:57 Discharge Plan Admission Admit Date/Time: 01/19/21 18:15 Primary Reason for Your Visit: Chest pain Attending Provider: Liz Ambrose Primary Care Provider: Sanju Sheppard Instructions Additional Instructions / Restrictions: Patient Problems: Altered Health Status related to Hospitalization Patient Goals: *Optimal Level of Health *Keep Appointments *Medication Compliance *Remain Safe Discharge Orders/Prescriptions Prescriptions: New pantoprazole 40 mg Tablet,Delayed Release (Dr/Ec) 40 mg PO BID Qty: 60 RF: 0 Continued sumatriptan succinate 100 MG tablet 100 mg PO TID PRN PRN (Reason: Migraine Symptoms) RF: 0 dicyclomine 10 MG capsule 20 mg PO TIDCM RF: 0 azelastine 6 ML drops 1 drp Each Eye BID PRN (Reason: ITCHING/PRESSURE) RF: 0 multivitamin [Multiple Vitamins] 1 EACH tablet 1 ea PO DAILY RF: 0 loperamide 2 MG capsule 2 mg PO Q4H PRN PRN (Reason: Diarrhea) RF: 0 duloxetine 60 mg capsule,delayed release(DR/EC) 60 mg PO DAILY RF: 0 Aimovig Autoinjector 70 mg/mL auto-injector 70 mg subcut QMONTH RF: 0 diphenhydramine-acetaminophen [Acetaminophen PM] 25-500 mg Tablet 2 tab PO QHS PRN (Reason: Sleep) RF: 0 Referrals / Follow Up: Sanju Sheppard MD [Primary Care Provider] - In 1 Week Disposition Disposition (needs filled in before D/C Order can be placed): Home, self care Visit Charges OBSV E&M: 99770 Observation care discharge Multi Select Codes Visit Charges Observation E&M Codin Observation care discharge Addendum Addendum: This patient was seen in conjunction with Lily Cotto. I have independently interviewed and examined the patient and reviewed pertinent historical, laboratory, and other data. I have reviewed her note and concur with her documentation 70-year-old female past medical history of GERD, chronic migraines, depression who comes in complaints of chest pain. Patient EKG showed no acute ST changes. ACS was ruled out during this hospital stay. She underwent a stress echo was negative. Patient was asked to take pantoprazole twice daily for acid reflux. She will follow up with her primary care doctor within 1 to 2 weeks. On the day of discharge, patient was seen and examined. Admits to feeling better. All questions were answered. Physical Exam: Vitals: Gen: Comfortable, not pale, not jaundiced CVS:HS I +II, regular, no murmurs RESP: CTA GI: BS present and normal, soft, nontender, no palpable organs EXT:No edema
== END 2021-01-20 11:32 | disposition home or self-care (01) ==
LOC: ED 18:10 → PCU 18:17
PROVIDERS: Admitting Provider Hospitalist; Emergency Provider Emergency Medicine; PCP Family Medicine; Visit Provider Internal Medicine
DX: R07.89 Other chest pain (principal); R00.2 Palpitations; K21.9 Gastro-esophageal reflux disease without esophagitis; G43.109 Migraine with aura, not intractable, without status migrainosus; F32.9 Major depressive disorder, single episode, unspecified; K31.84 Gastroparesis; K58.9 Irritable bowel syndrome, unspecified; Z79.899 Other long term (current) drug therapy
CPT/HCPCS: 36415; 71045; 78452; 80048; 83690; 84484; 85025; 93005; 93017; 96361; 96374; 96375; 99218; 99251; 99285; A9500; J7030; A4216; G0378; G0463; J2405

== ENCOUNTER → 2021-06-30 15:12 | Outpatient (CLI) | payer MEDICARE, SELFPAY ==
[2021-07-05 04:06] LABS: Alternaria tenuis <0.10 kU/L (Class 0); Ash, White <0.10 kU/L (Class 0); Aspergillus fumigatus <0.10 kU/L (Class 0); Bermuda Grass <0.10 kU/L (Class 0); Birch <0.10 kU/L (Class 0); Black Walnut <0.10 kU/L (Class 0); Cat Hair / Dander,Stand 0.14 kU/L (Class 0/I); Cedar, Mountain <0.10 kU/L (Class 0); Cladosporium herbarum <0.10 kU/L (Class 0); Cockroach, American <0.10 kU/L (Class 0); Cottonwood <0.10 kU/L (Class 0); D farinae Mite <0.10 kU/L (Class 0); D pteronyssinus <0.10 kU/L (Class 0); Dog Epithelia <0.10 kU/L (Class 0); Elm, American White <0.10 kU/L (Class 0); Immunoglobulin E 4 IU/mL (6-495); Maple/Box Elder <0.10 kU/L (Class 0); Mulberry, White <0.10 kU/L (Class 0); Oak, White <0.10 kU/L (Class 0); Pecan <0.10 kU/L (Class 0); Penicillium Notatum <0.10 kU/L (Class 0); Pigweed, Rough <0.10 kU/L (Class 0); Ragweed, Short/Common <0.10 kU/L (Class 0); Russian Thistle <0.10 kU/L (Class 0); Sheep Sorrel <0.10 kU/L (Class 0); Sycamore, American <0.10 kU/L (Class 0); Timothy Grass <0.10 kU/L (Class 0)
[2021-07-05 08:29] LABS: Mouse Urine <0.10 kU/L (Class 0)
== END ==
PROVIDERS: PCP Family Medicine; Referring Provider Otolaryngology; Visit Provider Otolaryngology
DX: T78.40XA Allergy, unspecified, initial encounter (principal)
CPT/HCPCS: 36415; 82785; 86003

== ENCOUNTER → 2021-08-25 13:03 | Outpatient (CLI) | payer MEDICARE, SELFPAY ==
--- NOTE | 2021-08-25 13:15 | CT_ITS ---
STUDY: CT MAXILLOFACIAL SINUSES REASON FOR EXAM: Female, 71 years old. SINUSITIS RADIATION DOSAGE (If Supplied By Facility): CTDIvol = ( 33.06 ) mGy, DLP = ( 792.53 ) mGycm TECHNIQUE: The patient was scanned in a multi detector CT scanner. High resolution axial imaging was performed without the administration of intravenous contrast material. Sagittal and coronal images were reconstructed. Individualized dose optimization techniques were used for this CT. COMPARISON: Comparison is made with prior study dated 07/25/2019. FINDINGS: FRONTAL SINUSES: Normal aeration, without mucosal inflammatory disease. ETHMOIDAL SINUSES: Partial opacification of the ethmoid sinuses. MAXILLARY SINUSES: Partial opacification of the maxillary sinuses with small air-fluid levels although there has been improvement as compared to prior study. SPHENOIDAL SINUSES: Normal aeration, without mucosal inflammatory disease. There is patency of the bilateral maxillary infundibuli with normal uncinate processes, ethmoid bullae, and hiatus semilunaris. Normal bilateral middle turbinates. Normal bilateral inferior turbinates. There is a left sided nasal septal deviation with a left sided nasal septal spur. There is patency of the bilateral nasal airways. The visualized osseous structures are normal. The visualized bilateral orbital contents are normal. CT/Sinus/Facial Bone IMPRESSION: Mild residual bilateral maxillary and ethmoid sinusitis although there has been moderate degree of improvement. Electronically Signed: Javi Aranad MD at 13:32 EST , Service support ,
== END ==
PROVIDERS: PCP Family Medicine; Referring Provider Otolaryngology; Visit Provider Otolaryngology
DX: J32.8 Other chronic sinusitis (principal)
CPT/HCPCS: 70486

== ENCOUNTER 2022-02-13 09:44 | Emergency (ER) | payer MEDICARE, SELFPAY ==
[2022-02-13 09:46] VITALS: BP 154/108; PULSE 81; RESP 14; TEMP 36.6; O2SAT 97; BMI 31.6
[2022-02-13 10:00] VITALS: BP 159/75; PULSE 81; RESP 16; O2SAT 98
--- NOTE | 2022-02-13 10:13 | EDS_ITS ---
HPI History of Present Illness Chief Complaint: Hypertension Narrative Narrative: 71-year-old female presenting with chief complaint of headache. She states has had it since yesterday. She states she has felt a little bit rundown. She has not really had an appetite. She states that she has a history of migraines but this does not feel quite the same. She does not have photophobia and phonophobia. She does like the lights to be lower however. She states that her blood pressure readings have been elevated in the 160s over 100 range. She was seen in urgent care yesterday and had a COVID test which was negative. She has not had any fever, chills, cough, cold. She expresses mild nausea without vomiting. Patient denies neck pain. She does not have any visual complaints, gait unsteadiness. This was nonacute onset headache. Patient does state that before the symptoms started on she had chest pain which felt like an elephant sitting on my chest for like 20 to 25 minutes. She did not have any other associated symptoms that she had expressed to me. She does not have any cardiac history. No history of DVT/PE. [facility] Medical History Gastroparesis IBS (irritable bowel syndrome) Migraine Home Medications sumatriptan succinate 100 mg PO TID PRN PRN 10/22/15 [History Last Taken 01/17/21] azelastine 1 drp EACH EYE BID PRN 03/26/18 [History Last Taken 01/19/21] loperamide 2 mg PO Q4H PRN PRN 03/26/18 [History Last Taken 01/19/21] multivitamin [Multiple Vitamins] 1 ea PO DAILY 03/26/18 [History Last Taken 01/19/21] Aimovig Autoinjector 70 mg SUBCUT QMONTH 01/19/21 [History Last Taken 12/27/20] diphenhydramine-acetaminophen [Acetaminophen PM] 2 tab PO QHS PRN 01/19/21 [History Last Taken 01/18/21] duloxetine 60 mg PO DAILY 01/19/21 [History Last Taken 01/18/21] sucralfate [Carafate] 1 g PO ACHS 02/13/22 [History Last Taken Unknown] Allergy/AdvReac Type Severity Reaction Status Date / Time venlafaxine HCl Allergy Hives Verified 02/13/22 09:45 [From Effexor] fluticasone propionate AdvReac headache Verified 02/13/22 09:45 [From Flonase] Surgical History History of esophageal hernia repair Social History (Updated 01/19/21 @ 19:39 by Nasima Rojas) household members: spouse housing: house number of children: 2 Smoking Status: Never smoker details: Drinks alcohol occasionally. ROS ROS ED Constitutional Constitutional ED: Denies chills or fever(s) Eyes Eyes: Denies blurry vision or diplopia ENT ENT ED: Denies rhinorrhea or sore throat Cardiovascular Cardiovascular: Reports chest pain; Denies palpitations or racing heartbeat Respiratory/Chest Respiratory/Chest: Denies cough or dyspnea Gastrointestinal Gastrointestinal: Reports nausea; Denies abdominal pain, diarrhea or vomiting Genitourinary Genitourinary ED: Denies dysuria or hematuria Musculoskeletal Musculoskeletal: Denies arthralgias or myalgias Integumentary Denies rash Neurologic Neurologic: Reports headache(s); Denies paresthesias or weakness Psychiatric Psychiatric: Denies anxiety or depression EXAM Physical Exam Const Vital Signs: 02/13/22 09:46 02/13/22 10:00 02/13/22 10:15 Temperature 98 F Temperature Source Temporal Pulse Rate 81 81 Respiratory Rate 14 16 Respiratory Effort Normal Non-Labored Respiratory Pattern Normal Blood Pressure 154/108 H 159/75 H Blood Pressure Mean 123 103 Pulse Ox 97 98 Oxygen Delivery Method Room Air Room Air Room Air Positive well nourished General Appearance ED: NAD; Negative for pallor HEENT Reports moist mucous membranes Negative for trauma Eyes PERRL and EOMs intact bilaterally General Eye ED: Negative for pale conjunctiva or scleral icterus Neck supple Chest Wall inspection of chest normal Resp normal respiratory effort and clear to auscultation bilaterally Cardio regular rate and regular rhythm GI normal to inspection, nondistended, normoactive bowel sounds Extremity normal to inspection General Extremety ED: Negative for edema or tenderness General Extremity: Negative for edema Neuro oriented x3, CN's II-XII intact bilaterally and no sensory deficits noted Sensorium / Orientation: alert Motor Exam: strength 5/5 throughout Psych mental status grossly normal Skin no rashes or lesions noted General Skin Exam: Negative for jaundice or pallor MDM MDM MDM Narrative Medical decision making narrative: Patient initially presented for headache. She thought that her blood pressures were very high and stated that her systolic was as high as 160s and her diastolic was about 100 earlier this week. Her initial blood pressure reading here in the ED was 154/108, this was repeated and was 159/75. At the time of my exam I repeated this as well and it was 116/97. Patient states that she does not have photophobia but I found her sitting in a dark because she turned the lights off. She does not have phonophobia. She has no focal neurologic deficits. She did state to me that she had chest pain on which felt like an elephant sitting on my chest for about 20 to 25 minutes. This had resolved. She does not report any associated symptoms. She states that she has just felt rundown since that time and had a headache. Patient reevaluated at 1130 and her headache is improved significantly with Reglan and Benadryl. CBC and BMP are within normal limits. High-sensitivity troponin is less than 3. EKG on my interpretation is normal sinus rhythm with a ventricular rate of 70 bpm without sign of ischemic change or dysrhythmia. I do not believe she needs repeat heart enzymes as she has not had this pain for couple of days and has a high sensitive troponin of less than 3. I have no suspicion for PE or DVT. Patient's blood pressure has improved with her headache. I believe she needs follow-up for her blood pressure but she is to keep a blood pressure diary. Unlikely to start anything today. Impression: 1. Headache 2. Chest pain 3. Elevated blood pressure Lab Data Attestation: I reviewed the patient's lab results. Labs: Laboratory Results - last 24 hr 02/13/22 02/13/22 10:45 10:45 WBC 7.9 RBC 4.12 L Hgb 11.7 L Hct 37.3 MCV 90.5 MCH 28.4 MCHC 31.4 L RDW Std Deviation 43.4 RDW Coeff of Alejandra 13.2 Plt Count 321 MPV 9.3 Immature Gran % (Auto) 0.400 Neut % (Auto) 46.1 L Lymph % (Auto) 39.3 [place] % (Auto) 9.7 Eos % (Auto) 3.7 Baso % (Auto) 0.8 Absolute Neuts (auto) 3.6 Absolute Lymphs (auto) 3.09 Nucleated RBC % 0 Sodium 139 Potassium 3.9 Chloride 107 Carbon Dioxide 27.0 Anion Gap 5 BUN 20 H Creatinine 0.77 Estim Creat Clear Calc 43.92 Est GFR (MDRD) Af Amer 96 Est GFR (MDRD) Non-Af 79 BUN/Creatinine Ratio 26.1 H Glucose 84 Calcium 8.8 Troponin I High Sens < 3 L Radiography Diagnostic Testing: Clinical Impression(s) from Imaging Studies Chest X-Ray 02/13/22 10:55 IMPRESSION: No acute cardiopulmonary process. Electronically Signed: Isabel Nelson MD at 11:11 EDT , Discharge Plan Triage Chief Complaint: Hypertension ED Provider: Adrián León Dx/Rx/DC Orders Instructions: Self-Care for Headaches, ED Chest Pain, Noncardiac Prescriptions: No Action sumatriptan succinate 100 MG tablet 100 mg PO TID PRN PRN (Reason: Migraine Symptoms) RF: 0 azelastine 6 ML drops 1 drp Each Eye BID PRN (Reason: ITCHING/PRESSURE) RF: 0 multivitamin [Multiple Vitamins] 1 EACH tablet 1 ea PO DAILY RF: 0 loperamide 2 MG capsule 2 mg PO Q4H PRN PRN (Reason: Diarrhea) RF: 0 duloxetine 60 mg capsule,delayed release(DR/EC) 60 mg PO DAILY RF: 0 Aimovig Autoinjector 70 mg/mL auto-injector 70 mg subcut QMONTH RF: 0 diphenhydramine-acetaminophen [Acetaminophen PM] 25-500 mg Tablet 2 tab PO QHS PRN (Reason: Sleep) RF: 0 sucralfate [Carafate] 1 gram Tablet 1 g PO ACHS RF: 0 Primary Care Provider: Sanju Sheppard Referrals: Sanju Sheppard MD [Primary Care Provider] - Disposition Disposition: Home, Self Care
--- NOTE | 2022-02-13 10:15 | EKG12_ITS ---
Test Reason : HYPOTENSION Blood Pressure : / mmHG Vent. Rate : 070 BPM Atrial Rate : 070 BPM P-R Int : 202 ms QRS Dur : 088 ms QT Int : 390 ms P-R-T Axes : 052 -08 025 degrees QTc Int : 421 ms Normal sinus rhythm Normal ECG When compared with ECG of 20-JAN-2021 05:07, No significant change was found Confirmed by PARAS HITCHCOCK, DWAYNE ([id number]), visual effects editor CHRISTINA LAWRENCE ([id number]) on 02/17/2022 9:02:13 AM Referred By: MARK Confirmed By:DWAYNE CRAIN MD
[2022-02-13] MEDS: DiphenhydrAMINE 50 MG/ML Syringe 25 MG IV (10:48)
[2022-02-13] MEDS: Metoclopramide 10 MG/2 ML Vial IV (10:48)
--- NOTE | 2022-02-13 10:55 | RAD_ITS ---
STUDY: X-RAY CHEST REASON FOR EXAM: Female, 71 years old. Chest pain TECHNIQUE: Single frontal view of the chest. COMPARISON: 01/19/2021 FINDINGS: The lungs are clear and expanded. There is no demonstrated pleural abnormality. Normal size heart. Normal mediastinum and janette. Normal visualized pulmonary arteries. Normal visualized aortic arch and descending thoracic aorta. Normal visualized thoracic spine. Normal visualized ribs, clavicles, and shoulders. There is no demonstrated abnormality of the visualized soft tissue structures of the upper abdomen. RAD/Chest 1 View (Portable) IMPRESSION: No acute cardiopulmonary process. Electronically Signed: Isabel Nelson MD at 11:11 EDT ,
[2022-02-13 10:59] LABS: Absolute Lymphocyte Count 3.09 X10^3/uL (0.83-4.51); Absolute Neutrophil Count 3.6 X10^3/uL (2.0-7.7); Basophil# 0.06 X10^3/uL; Basophil% 0.8 % (0-1); Eosinophil# 0.29 X10^3/uL; Eosinophils% 3.7 % (0-5); Hematocrit 37.3 % (37-47); Hemoglobin 11.7 g/dL (12.0-15.0); Lymphocyte # 3.09 X10^3/ul (0.83-4.51); Lymphocyte % 39.3 % (19-41); Mean Corp Hgb Conc 31.4 g/dL (32-36); Mean Corpuscular Hgb 28.4 pg (27.0-32.0); Mean Corpuscular Volume 90.5 fL (81-99); Mean Platelet Vol. 9.3 fl (6.2-12.0); Monocyte# 0.76 X10^3/uL; Monocyte% 9.7 % (0-10); NRBC Flagged by Analyzer 0 % (0-5); Neutrophil # 3.63 X10^3/uL (2.7-7.7); Neutrophil % 46.1 % (47-70); Platelet Count 321 K/mm3 (150-450); RBC Distribution Width CV 13.2 % (11.6-14.6); RBC Distribution Width SD 43.4 fl (35.1-43.9); Red Blood Count 4.12 M/mm3 (4.2-5.4); White Blood Count 7.9 K/mm3 (4.4-11.0)
[2022-02-13 11:14] LABS: Anion Gap 5 (5-15); BUN 20 mg/dL (7-18); BUN/Creat Ratio 26.1 RATIO (10-20); Calcium,Total 8.8 mg/dL (8.5-10.1); Chloride 107 mmol/L (98-107); Creatinine, Serum 0.77 mg/dL (0.55-1.02); EST Glomerular Filtration Rate 79 mL/min (>60); Est Glom Filt Rate - Afr Amer 96 mL/min (>60); Estimated Creatinine Clearance 43.92 ml/min; Glucose 84 mg/dL (74-106); Potassium 3.9 mmol/L (3.5-5.1); Sodium Level 139 mmol/L (136-145); Troponin-I HS (w/2H Reflex) < 3 pg/mL (3.0-54.0)
[2022-02-13 12:53] LABS: Reflex Troponin-HS? (from REC) Y
== END 2022-02-13 11:48 | disposition home or self-care (01) ==
PROVIDERS: Emergency Provider Student in an Organized Health Care Education/Training Program; PCP Family Medicine; Visit Provider Student in an Organized Health Care Education/Training Program
DX: R51.9 Headache, unspecified (principal); R07.9 Chest pain, unspecified; R03.0 Elevated blood-pressure reading, without diagnosis of hypertension; K58.9 Irritable bowel syndrome, unspecified; R11.0 Nausea; Z79.899 Other long term (current) drug therapy
CPT/HCPCS: 71045; 80048; 84484; 85025; 93005; 96361; 96374; 96375; 99284

== ENCOUNTER 2022-07-02 08:58 | Emergency (ER) | payer MEDICARE, SELFPAY ==
[2022-07-02 09:00] VITALS: BP 158/91; PULSE 97; RESP 16; TEMP 36.5; O2SAT 98; BMI 31.3
--- NOTE | 2022-07-02 09:26 | CT_ITS ---
STUDY: CT BRAIN WITHOUT CONTRAST REASON FOR EXAM: Female, 71 years old. head trauma RADIATION DOSAGE (If Supplied By Facility): CTDIvol = ( 44.99 ) mGy, DLP = ( 779.24 ) mGycm TECHNIQUE: Transaxial CT imaging of the brain was performed without administration of intravenous contrast material. Individualized dose optimization techniques were used for this CT. COMPARISON: No relevant priors. FINDINGS: Normal soft tissue structures. Normal calvarium. Normal size ventricles and extra-axial spaces for the patient''s age. Normal white matter tracts of the cerebral hemispheres. Normal basal ganglia and thalami. Normal brainstem. Normal cerebellum. There is no intracranial hemorrhage. There are no findings of an acute ischemic infarction. Normal visualized paranasal sinuses. CT/Brain/Head without Contrast IMPRESSION: Normal unenhanced CT scan of the brain. Electronically Signed: Maverick Mcqueen MD at 10:18 EDT ,
--- NOTE | 2022-07-02 09:28 | EX.ED.VIS.HA ---
HPI History of Present Illness Chief Complaint: Headache Narrative Narrative: 71-year-old female presenting with headache. She states this has been off and on since the fifth when she fell at home with mechanical fall hitting her head. She denies LOC. She states I corrected. No neck pain. No visual complaints, dizziness, lightheadedness. No nausea or vomiting. She sustained no lacerations or abrasions when she fell. She states she initially had some bruising on the right shoulder but this is resolved and she does not have any problems moving her right shoulder. She states has a history of migraine headaches but this is not similar. She has no light or sound sensitivity. Patient states she took some Ultram from her yesterday which did give her some rest last night. She states her headache is now returned. No new injuries. [facility] Medical History Gastroparesis IBS (irritable bowel syndrome) Migraine Home Medications sumatriptan succinate 100 mg tablet 100 mg PO TID PRN PRN Migraine Symptoms 10/22/15 [History Last Taken 01/17/21] azelastine 0.05 % eye drops 1 drp BID PRN ITCHING/PRESSURE 03/26/18 [History Last Taken 01/19/21] loperamide 2 mg capsule 2 mg PO Q4H PRN PRN Diarrhea 03/26/18 [History Last Taken 01/19/21] multivitamin (Multiple Vitamins tablet) 1 ea PO DAILY SUPPLEMENT 03/26/18 [History Last Taken 01/19/21] diphenhydramine 25 mg-acetaminophen 500 mg tablet (Acetaminophen PM) 2 tab PO QHS PRN Sleep 01/19/21 [History Last Taken 01/18/21] duloxetine 60 mg capsule,delayed release 60 mg PO DAILY depression 01/19/21 [History Last Taken 01/18/21] erenumab-aooe 70 mg/mL subcutaneous auto-injector (Aimovig Autoinjector) 70 mg subcut QMONTH 01/19/21 [History Last Taken 12/27/20] sucralfate 1 gram tablet (Carafate) 1 g PO ACHS 02/13/22 [History Last Taken Unknown] metformin 500 mg tablet,extended release 24 hr 1,000 mg PO DAILY 07/02/22 [History Last Taken Unknown] Allergy/AdvReac Type Severity Reaction Status Date / Time venlafaxine HCl Allergy Hives Verified 07/02/22 09:00 [From Effexor] fluticasone propionate AdvReac headache Verified 07/02/22 09:00 [From Flonase] Surgical History History of esophageal hernia repair Social History household members: spouse housing: house number of children: 2 Smoking Status: Never smoker details: Drinks alcohol occasionally. ROS ROS ED Constitutional Constitutional ED: Denies chills or fever(s) Eyes Eyes: Denies blurry vision or change in vision ENT ENT ED: Denies rhinorrhea, sore throat or other Cardiovascular Cardiovascular: Denies chest pain or palpitations Respiratory/Chest Respiratory/Chest: Denies cough or dyspnea Gastrointestinal Gastrointestinal: Denies abdominal pain or constipation Genitourinary Genitourinary ED: Denies dysuria Musculoskeletal Musculoskeletal: Denies arthralgias or back pain Integumentary Denies abscess or Abrasions Neurologic Neurologic: Reports headache(s); Denies paresthesias or weakness Psychiatric Psychiatric: Denies anxiety or depression EXAM Physical Exam Const Vital Signs: 07/02/22 09:00 Temperature 97.7 F L Temperature Source Temporal Pulse Rate 97 Respiratory Rate 16 Blood Pressure 158/91 H Blood Pressure Mean 113 Pulse Ox 98 Oxygen Delivery Method Room Air Positive well nourished General Appearance ED: NAD; Negative for pallor HEENT Reports normocephalic, TM's clear and moist mucous membranes atraumatic Tympanic Membrane ED: Yes TM's clear Eyes PERRL and EOMs intact bilaterally General Eye ED: Negative for pale conjunctiva or scleral icterus Neck no lymphadenopathy and supple General: Negative for tenderness Resp normal respiratory effort and clear to auscultation bilaterally Cardio regular rate and regular rhythm Neuro oriented x3, CN's II-XII intact bilaterally and no sensory deficits noted Sensorium / Orientation: awake and alert Speech: speech normal Motor Exam: strength 5/5 throughout Psych mental status grossly normal Skin General Skin Exam: Negative for jaundice or pallor MDM MDM MDM Narrative Medical decision making narrative: Patient presenting with intermittent headache since she fell on the fifth. She states that has come and gone multiple times. She has no red flag signs or symptoms. She has no focal neurologic deficits or lateralizing signs or symptoms. She not had a fever or neck pain. Her right shoulder pain has resolved. She request a CT of the brain because she think she is injured something inside her head. She will be treated with Reglan Benadryl while she is waiting. CT of the brain is negative. I recommend the patient alternate Tylenol ibuprofen for home. She is to follow-up with her PCP to ensure resolution. No believe she needs blood work or further imaging. Patient amenable to this. She is discharged stable condition. Impression: 1. Headache 2. Closed head injury Lab Data Attestation: I reviewed the patient's lab results. Radiography Diagnostic Testing: Clinical Impression(s) from Imaging Studies Brain CT 07/02/22 09:26 IMPRESSION: Normal unenhanced CT scan of the brain. Electronically Signed: Maverick Mcqueen MD at 10:18 EDT , Discharge Plan Triage Chief Complaint: Headache ED Provider: Adrián León Dx/Rx/DC Orders Instructions: ED Headache Unspecified Prescriptions: No Action sumatriptan succinate 100 MG tablet 100 mg PO TID PRN PRN (Reason: Migraine Symptoms) Label Comments: migraines azelastine 6 ML drops 1 drp Each Eye BID PRN (Reason: ITCHING/PRESSURE) Label Comments: INSTILL 1 DROP INTO BOTH EYES TWICE DAILY multivitamin [Multiple Vitamins] 1 EACH tablet 1 ea PO DAILY loperamide 2 MG capsule 2 mg PO Q4H PRN PRN (Reason: Diarrhea) duloxetine 60 mg capsule,delayed release(DR/EC) 60 mg PO DAILY Label Comments: take 1 capsule by mouth once daily Aimovig Autoinjector 70 mg/mL auto-injector 70 mg subcut QMONTH Label Comments: inject 1 milliliter ( 70 milligrams ) subcutaneously Every Month ... (REFER TO PRESCRIPTION NOTES). diphenhydramine-acetaminophen [Acetaminophen PM] 25-500 mg Tablet 2 tab PO QHS PRN (Reason: Sleep) sucralfate [Carafate] 1 gram Tablet 1 g PO ACHS metformin 500 mg tablet extended release 24 hr 1,000 mg PO DAILY Label Comments: Take 2 tablets by mouth once daily. Primary Care Provider: Sanju Sheppard Referrals: Sanju Sheppard MD [Primary Care Provider] - Disposition Disposition: Home, Self Care
[2022-07-02] MEDS: DiphenhydrAMINE 50 MG/ML Syringe 25 MG IV (09:39)
[2022-07-02] MEDS: Metoclopramide 10 MG/2 ML Vial IV (09:40)
[2022-07-02 10:49] VITALS: BP 124/67; RESP 16; O2SAT 98
== END 2022-07-02 10:55 | disposition home or self-care (01) ==
PROVIDERS: Emergency Provider Student in an Organized Health Care Education/Training Program; PCP Family Medicine; Visit Provider Student in an Organized Health Care Education/Training Program
DX: S09.90XA Unspecified injury of head, initial encounter (principal); W19.XXXA Unspecified fall, initial encounter; Z79.84 Long term (current) use of oral hypoglycemic drugs; Z79.899 Other long term (current) drug therapy
CPT/HCPCS: 70450; 96374; 96375; 99283; A4216

== ENCOUNTER 2023-02-14 05:14 | Observation (INO) | payer MEDICARE, SELFPAY ==
[2023-02-14 05:15] VITALS: BP 167/81; PULSE 76; RESP 19; TEMP 36.1; O2SAT 97; BMI 31.9
--- NOTE | 2023-02-14 05:34 | EKG12_ITS ---
Test Reason : REPEAT Blood Pressure : / mmHG Vent. Rate : 054 BPM Atrial Rate : 054 BPM P-R Int : 224 ms QRS Dur : 088 ms QT Int : 442 ms P-R-T Axes : 047 -04 013 degrees QTc Int : 419 ms Sinus bradycardia with 1st degree A-V block Minimal voltage criteria for LVH, may be normal variant ( R in aVL ) Borderline ECG Confirmed by PARAS HITCHCOCK, DWAYNE ([id number]), writer editor CHRISTINA LAWRENCE ([id number]) on 02/15/2023 9:00:12 AM Referred By: Piotr Confirmed By:DWAYNE CRAIN MD
--- NOTE | 2023-02-14 05:34 | RAD_ITS ---
EXAM: XR CHEST, 2 VIEWS CLINICAL INDICATION: chest pain chest pain TECHNIQUE: Frontal and lateral views of the chest. COMPARISON: 02/13/2022. FINDINGS: LUNGS AND PLEURAL SPACES: Unremarkable. No consolidation or edema. No pneumothorax. No effusion. HEART: Unremarkable. Cardiac silhouette not enlarged. MEDIASTINUM: There is a hiatal hernia. BONES/JOINTS: There are multilevel degenerative changes in the visualized spine. SOFT TISSUES: Unremarkable. RAD/Chest PA and Lateral IMPRESSION: 1. Hiatal hernia. 2. No evidence for acute cardiopulmonary pathology. Electronically Signed: Aron Carrera MD at 6:11 EDT Reading Location ID and State: [facility] / [place] , Service support ,
[2023-02-14] MEDS: Aspirin 81 MG TAB.CHEW 324 MG PO (05:38)
[2023-02-14 05:44] VITALS: BP 139/93; PULSE 66
[2023-02-14] MEDS: Nitroglycerin SL (ED/IMG/CATH) 0.4 MG TABLET SL (05:44)
[2023-02-14 05:50] LABS: Absolute Lymphocyte Count 3.15 X10^3/uL (0.83-4.51); Basophil# 0.09 X10^3/uL; Basophil% 1.1 % (0-1); Eosinophil# 0.31 X10^3/uL; Eosinophils% 3.7 % (0-5); Hematocrit 40.8 % (37-47); Hemoglobin 12.6 g/dL (12.0-15.0); Lymphocyte # 3.15 X10^3/ul (0.83-4.51); Lymphocyte % 37.3 % (19-41); Mean Corp Hgb Conc 30.9 g/dL (32-36); Mean Platelet Vol. 9.2 fl (6.2-12.0); Monocyte# 0.83 X10^3/uL; Monocyte% 9.8 % (0-10); NRBC Flagged by Analyzer 0 % (0-5); Neutrophil # 4.03 X10^3/uL (2.7-7.7); Neutrophil % 47.7 % (47-70); Platelet Count 347 K/mm3 (150-450); RBC Distribution Width CV 13.2 % (11.6-14.6); RBC Distribution Width SD 45.4 fl (35.1-43.9); Red Blood Count 4.34 M/mm3 (4.2-5.4); White Blood Count 8.4 K/mm3 (4.4-11.0)
[2023-02-14 06:09] LABS: Anion Gap 4 (5-15); BUN 15 mg/dL (7-18); BUN/Creat Ratio 18.5 RATIO (10-20); Calcium,Total 9.4 mg/dL (8.5-10.1); Chloride 108 mmol/L (98-107); Creatinine, Serum 0.81 mg/dL (0.55-1.02); EST Glomerular Filtration Rate 74 mL/min (>60); Est Glom Filt Rate - Afr Amer 90 mL/min (>60); Estimated Creatinine Clearance 53.46 ml/min; Glucose 79 mg/dL (74-106); Magnesium 2.3 mg/dL (1.6-2.6); Potassium 3.8 mmol/L (3.5-5.1); Sodium Level 139 mmol/L (136-145); Thyroid Stim Hormone (TSH) 2.34 uIU/mL (0.358-3.74); Troponin-I HS (w/2H Reflex) 6 pg/mL (3.0-54.0)
--- NOTE | 2023-02-14 07:23 | ED.VIS.CHEST ---
HPI History of Present Illness Chief Complaint: Chest Pain Informant: patient Narrative Narrative: Patient is a 72-year-old female with history of migraines, gastroparesis, IBS presenting with chest pain. Patient states over the past few days her blood pressure has been running high. She states been between the 170s to the 180s systolic. She had a blood pressure check yesterday with the PA at her PCP office. She was placed on metoprolol this week and instructed to keep a blood pressure log. She notes that she did have recent injection of Botox for her migraines. She states this morning around 4 AM she woke up with pressure in her chest. She states that the like an elephant on her chest. She has a mild shortness of breath but says it is more like her breath is catching and has been for the past 1 to 2 days. She denies any swelling of her legs. Denies a history of DVT or PE. She is on an [id number] weight loss medication which is a supplement called Lipozene. Patient denies any history of heart attack. She states her last tress test was a long time ago. No other complaints at this time. [facility] Medical History Gastroparesis IBS (irritable bowel syndrome) Migraine Home Medications sumatriptan succinate 100 mg tablet 100 mg PO TID PRN PRN Migraine Symptoms 10/22/15 [History Last Taken 01/17/21] azelastine 0.05 % eye drops 1 drp BID PRN ITCHING/PRESSURE 03/26/18 [History Last Taken 01/19/21] loperamide 2 mg capsule 2 mg PO Q4H PRN PRN Diarrhea 03/26/18 [History Last Taken 01/19/21] multivitamin (Multiple Vitamins tablet) 1 ea PO DAILY SUPPLEMENT 03/26/18 [History Last Taken 01/19/21] diphenhydramine 25 mg-acetaminophen 500 mg tablet (Acetaminophen PM) 2 tab PO QHS PRN Sleep 01/19/21 [History Last Taken 01/18/21] duloxetine 60 mg capsule,delayed release 60 mg PO DAILY depression 01/19/21 [History Last Taken 01/18/21] erenumab-aooe 70 mg/mL subcutaneous auto-injector (Aimovig Autoinjector) 70 mg subcut QMONTH 01/19/21 [History Last Taken 12/27/20] sucralfate 1 gram tablet (Carafate) 1 g PO ACHS 02/13/22 [History Last Taken Unknown] metformin 500 mg tablet,extended release 24 hr 1,000 mg PO DAILY 07/02/22 [History Last Taken Unknown] Allergy/AdvReac Type Severity Reaction Status Date / Time venlafaxine HCl Allergy Hives Verified 02/14/23 05:19 [From Effexor] fluticasone propionate AdvReac headache Verified 02/14/23 05:19 [From Flonase] Surgical History History of esophageal hernia repair Social History household members: spouse housing: house number of children: 2 Smoking Status: Never smoker details: Drinks alcohol occasionally. ROS ROS ED Constitutional Constitutional ED: Denies chills or fever(s) ENT ENT ED: Denies sore throat Cardiovascular Cardiovascular: Reports as per HPI and chest pain; Denies palpitations Respiratory/Chest Respiratory/Chest: Denies cough or dyspnea Gastrointestinal Gastrointestinal: Denies abdominal pain, nausea or vomiting Musculoskeletal Musculoskeletal: Denies arthralgias, back pain or myalgias Integumentary Denies rash Neurologic Neurologic: Denies headache(s) or weakness Psychiatric Psychiatric: Denies anxiety Hematologic/Lymphatic Hematologic/Lymphatic: Denies easy bleeding or easy bruising EXAM Physical Exam Const Vital Signs: 02/14/23 05:15 02/14/23 05:44 02/14/23 05:34 Temperature 96.9 F L Temperature Source Temporal Pulse Rate 76 66 Respiratory Rate 19 H Blood Pressure 167/81 H 139/93 H Blood Pressure Mean 109 Pulse Ox 97 Oxygen Delivery Method Room Air Room Air Positive well nourished and well developed General Appearance ED: well developed and NAD HEENT Reports moist mucous membranes normocephalic and atraumatic Eyes PERRL and EOMs intact bilaterally Neck supple and no JVD Chest Wall inspection of chest normal and palpation of chest normal Resp normal respiratory effort and clear to auscultation bilaterally Cardio regular rate, regular rhythm and no murmurs GI normal to inspection, nondistended, normoactive bowel sounds and soft to palpation Back/Spine no CVA tenderness Extremity normal to inspection General Extremety ED: Negative for edema or pulses abnormal General Extremity: Negative for edema or pulses abnormal Neuro oriented x3 Sensorium / Orientation: awake and alert Motor Exam: Negative for general weakness Psych mental status grossly normal Skin no rashes or lesions noted Heart Score History: Highly Suspicious ECG: Nonspecific Repolarization Age: >/= 65 years Risk Factors: 1 or 2 Risk Factors Troponin: </= Normal Limit Score: 6 MDM MDM MDM Narrative Medical decision making narrative: Patient is evaluated for chest pain that she describes as an elephant on her chest. It is relieved with nitroglycerin in the ER. EKG is not consistent with ACS but she does have a new T wave inversion in lead III. Her high-sensitivity troponins are normal at 6 and 6. After 1 nitroglycerin she states her pain is significantly better. Repeat EKG does not show any progressive/dynamic ischemic changes. Despite her largely normal work-up with blood work, given her age, story, family history and EKG changes I do think she would benefit from further cardiac evaluation/stress testing. Patient is agreeable with this. Patient is also given aspirin in the emergency room. Case discussed with admitting physician, Dr. Deleon, who accepts the patient. He will order stress test for this morning. Patient esa hemodynamically stable in the emergency room. Lab Data Attestation: I reviewed the patient's lab results. Labs: Laboratory Results - last 24 hr 02/14/23 02/14/23 02/14/23 05:30 05:30 07:35 WBC 8.4 RBC 4.34 Hgb 12.6 Hct 40.8 MCV 94.0 MCH 29.0 MCHC 30.9 L RDW Std Deviation 45.4 H RDW Coeff of Alejandra 13.2 Plt Count 347 MPV 9.2 Immature Gran % (Auto) 0.400 Neut % (Auto) 47.7 Lymph % (Auto) 37.3 [place] % (Auto) 9.8 Eos % (Auto) 3.7 Baso % (Auto) 1.1 H Absolute Neuts (auto) 4.0 Absolute Lymphs (auto) 3.15 Nucleated RBC % 0 Sodium 139 Potassium 3.8 Chloride 108 H Carbon Dioxide 27.0 Anion Gap 4 L BUN 15 Creatinine 0.81 Estim Creat Clear Calc 53.46 Est GFR (MDRD) Af Amer 90 Est GFR (MDRD) Non-Af 74 BUN/Creatinine Ratio 18.5 Glucose 79 Calcium 9.4 Magnesium 2.3 Troponin I High Sens 6 6 TSH 2.34 Radiography Chest X-Ray - ED: 2 View, Read by ED Physician, Read by Radiologist and No Acute Disease Diagnostic Testing: Clinical Impression(s) from Imaging Studies Chest X-Ray 02/14/23 05:34 IMPRESSION: 1. Hiatal hernia. 2. No evidence for acute cardiopulmonary pathology. Electronically Signed: Aron Carrera MD at 6:11 EDT Reading Location ID and State: [facility] / [place] , Service support , Rhythm Strip Rhythm Strip: Sinus Rhythm Rate: 64 Ectopy: None EKG Initial EKG: Attestation: I personally reviewed and interpreted this EKG as follows: Interpretation: Sinus Rhythm Comments: Normal sinus rhythm at a rate of 64 bpm Normal axis Normal intervals T wave inversion in lead III Prior EKG tracings: available for review Prior: Changed (T wave inversion in lead III is new) Follow-up EKG: Attestation: I personally reviewed and interpreted this EKG as follows: Comments: Sinus bradycardia with first-degree AV block with a [place] interval of 224 Rate of 54 bpm Minimal voltage criteria for LVH now present Continued T wave inversion in lead III Management Discussion w/another healthcare provider: Hospitalist Discharge Plan Triage Chief Complaint: Chest Pain ED Provider: Carmelita Henderson Dx/Rx/DC Orders Clinical Impression: Chest pain, Hypertension Prescriptions: No Action sumatriptan succinate 100 MG tablet 100 mg PO TID PRN PRN (Reason: Migraine Symptoms) Label Comments: migraines azelastine 6 ML drops 1 drp Each Eye BID PRN (Reason: ITCHING/PRESSURE) Label Comments: INSTILL 1 DROP INTO BOTH EYES TWICE DAILY multivitamin [Multiple Vitamins] 1 EACH tablet 1 ea PO DAILY loperamide 2 MG capsule 2 mg PO Q4H PRN PRN (Reason: Diarrhea) duloxetine 60 mg capsule,delayed release(DR/EC) 60 mg PO DAILY Label Comments: take 1 capsule by mouth once daily Aimovig Autoinjector 70 mg/mL auto-injector 70 mg subcut QMONTH Label Comments: inject 1 milliliter ( 70 milligrams ) subcutaneously Every Month ... (REFER TO PRESCRIPTION NOTES). diphenhydramine-acetaminophen [Acetaminophen PM] 25-500 mg Tablet 2 tab PO QHS PRN (Reason: Sleep) sucralfate [Carafate] 1 gram Tablet 1 g PO ACHS metformin 500 mg tablet extended release 24 hr 1,000 mg PO DAILY Label Comments: Take 2 tablets by mouth once daily. Primary Care Provider: Sanju Sheppard Referrals: Sanju Sheppard MD [Primary Care Provider] - Disposition Disposition: Acute Care Hospital [facility]
[2023-02-14 07:46] LABS: Reflex Troponin-HS? (from REC) Y
--- NOTE | 2023-02-14 07:47 | EKG12_ITS ---
Test Reason : CP Blood Pressure : / mmHG Vent. Rate : 064 BPM Atrial Rate : 064 BPM P-R Int : 204 ms QRS Dur : 088 ms QT Int : 402 ms P-R-T Axes : 050 -12 014 degrees QTc Int : 414 ms Normal sinus rhythm Normal ECG Confirmed by DWAYNE CRAIN MD ([id number]), editor newspaper CHRISTINA LAWRENCE ([id number]) on 02/15/2023 8:59:54 AM Referred By: ISSA Confirmed By:DWAYNE CRAIN MD
[2023-02-14 08:10] LABS: Troponin-I HS 6 pg/mL (3.0-54.0)
[2023-02-14 08:14] VITALS: BP 135/61; PULSE 72; RESP 16; O2SAT 98
--- NOTE | 2023-02-14 08:33 | NURSING ---
PCU OBS [place] CHEST PAIN
[2023-02-14 11:00] VITALS: BMI 33.0
[2023-02-14 11:10] VITALS: BP 146/76; PULSE 62; RESP 16; TEMP 36.5; O2SAT 98
[2023-02-14 12:04] LABS: Troponin-I HS 4 pg/mL (3.0-54.0)
[2023-02-14] MEDS: Acetaminophen 500 MG Tablet 1000 MG PO (13:47)
--- NOTE | 2023-02-14 17:08 | PCM.HP.STD ---
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 She says that she had noticed over the last couple days her blood pressures been running higher than normal and was placed on metoprolol which is a new blood pressure medication for her. She woke up this morning around 4 AM with pressure in her chest. She denies any significant shortness of breath but she describes needing to catch her breath at times. In the ER today her EKG was nonischemic and she had normal troponins but she does have some remote family history of these and had a stress test about 2 years ago around this time that was normal. [facility] Medical History Gastroparesis IBS (irritable bowel syndrome) Migraine Home Medications sumatriptan succinate 100 mg tablet 100 mg PO TID PRN PRN Migraine Symptoms 10/22/15 [History Last Taken 02/13/23] azelastine 0.05 % eye drops 1 drp BID PRN ITCHING/PRESSURE 03/26/18 [History Last Taken 01/19/21] loperamide 2 mg capsule 2 mg PO Q4H PRN PRN Diarrhea 03/26/18 [History Last Taken 01/19/21] multivitamin (Multiple Vitamins tablet) 1 ea PO DAILY SUPPLEMENT 03/26/18 [History Last Taken 02/13/23] diphenhydramine 25 mg-acetaminophen 500 mg tablet (Acetaminophen PM) 2 tab PO QHS PRN Sleep 01/19/21 [History Last Taken 02/13/23] duloxetine 60 mg capsule,delayed release 60 mg PO DAILY depression 01/19/21 [History Last Taken 02/13/23] erenumab-aooe 70 mg/mL subcutaneous auto-injector (Aimovig Autoinjector) 70 mg subcut QMONTH 01/19/21 [History Last Taken 12/27/20] sucralfate 1 gram tablet (Carafate) 1 g PO ACHS 02/13/22 [History Last Taken Unknown] metformin 500 mg tablet,extended release 24 hr 1,000 mg PO DAILY 07/02/22 [History Last Taken 02/13/23] levothyroxine 50 mcg tablet 50 mcg PO DAILY thyroid 02/14/23 [History Last Taken 02/14/23] linaclotide 72 mcg capsule (Linzess) 72 mcg PO DAILY Stomach 02/14/23 [History Last Taken 02/14/23] metoprolol succinate 25 mg tablet,extended release 24 hr 25 mg PO DAILY BP 02/14/23 [History Last Taken 02/14/23] Allergy/AdvReac Type Severity Reaction Status Date / Time venlafaxine HCl Allergy Hives Verified 02/14/23 05:19 [From Effexor] fluticasone propionate AdvReac headache Verified 02/14/23 05:19 [From Flonase] Family History (Updated 02/14/23 @ 17:[address] Neo Deleon MD) Other Heart disease Hypertension Surgical History History of esophageal hernia repair Social History household members: spouse housing: house number of children: 2 Smoking Status: Never smoker details: Drinks alcohol occasionally. ROS Constitutional Constitutional: Denies chills, fatigue, fever(s) or malaise Eyes Eyes: Denies blurry vision ENT HEENT: Denies headache(s) or nasal discharge Cardiovascular Cardiovascular: Reports chest pain; Denies dyspnea on exertion or syncope Respiratory/Chest Respiratory/Chest: Denies cough, shortness of breath at rest or shortness of breath with exertion Gastrointestinal Gastrointestinal: Denies constipation, diarrhea, nausea or vomiting Genitourinary Genitourinary: Denies dysuria Neurologic Neurologic: Denies focal weakness, numbness or tremor(s) Psychiatric Psychiatric: Denies anxiety or depression Vital Signs Vital Signs Vital Signs: 02/14/23 05:15 02/14/23 05:44 02/14/23 05:34 Temperature 96.9 F L Temperature Source Temporal Pulse Rate 76 66 Respiratory Rate 19 H Blood Pressure 167/81 H 139/93 H Blood Pressure Mean 109 Blood Pressure Source Blood Pressure Position Blood Pressure Location Pulse Ox 97 Oxygen Delivery Method Room Air Room Air 02/14/23 08:14 02/14/23 11:10 Temperature 97.7 F L Temperature Source Oral Pulse Rate 72 62 Respiratory Rate 16 16 Blood Pressure 135/61 H 146/76 H Blood Pressure Mean 85 99 Blood Pressure Source Monitor Blood Pressure Position Semi-Fowlers Blood Pressure Location Right Arm Pulse Ox 98 98 Oxygen Delivery Method Room Air Room Air Weight Weight: 180 lb 8.937 oz Body Mass Index (BMI) 33.0 Physical Exam Narrative General: Alert, Oriented x3, Cooperative, No apparent distress HEENT: Atraumatic, PERRLA, EOMI, Normocephalic Oral: Moist Mucosa Neck: Supple, No JVD Lungs: Diminished, Normal air movement, No rhonchi, No wheeze, No rales Cardiovascular: Regular rate, Regular Rhythm, Normal S1, Normal S2, No murmurs Abdomen: Soft, Non Tender, Non-Distended, No Hepato-splenomegaly Extremities: No edema, Capillary Refill Less than 3 Seconds Skin: No rashes, No breakdown Musculoskeletal: No Tenderness to Palpation of Joints or Extremities Neurological: Cranial nerves II-XII grossly intact, Motor Exam 5/5 strength throughout, Sensory exam intact to light touch and pain Psych/Mental Status: Normal Affect, Appropriate Results Lab / Micro Data Result Diagrams: 02/14/23 05:30 02/14/23 05:30 Labs: Laboratory Results - last 24 hr 02/14/23 05:30: WBC 8.4, RBC 4.34, Hgb 12.6, Hct 40.8, MCV 94.0, MCH 29.0, MCHC 30.9 L, RDW Std Deviation 45.4 H, RDW Coeff of Alejandra 13.2, Plt Count 347, MPV 9.2, Immature Gran % (Auto) 0.400, Neut % (Auto) 47.7, Lymph % (Auto) 37.3, [place] % (Auto) 9.8, Eos % (Auto) 3.7, Baso % (Auto) 1.1 H, Absolute Neuts (auto) 4.0, Absolute Lymphs (auto) 3.15, Nucleated RBC % 0 02/14/23 05:30: Sodium 139, Potassium 3.8, Chloride 108 H, Carbon Dioxide 27.0, Anion Gap 4 L, BUN 15, Creatinine 0.81, Estim Creat Clear Calc 53.46, Est GFR (MDRD) Af Amer 90, Est GFR (MDRD) Non-Af 74, BUN/Creatinine Ratio 18.5, Glucose 79, Calcium 9.4, Magnesium 2.3, Troponin I High Sens 6, TSH 2.34 02/14/23 07:35: Troponin I High Sens 6 02/14/23 11:37: Troponin I High Sens 4 Rhythm Strip Rhythm Strip: Sinus Rhythm Rate: 64 Ectopy: None Radiology Impression Chest X-Ray 02/14/23 05:34 IMPRESSION: 1. Hiatal hernia. 2. No evidence for acute cardiopulmonary pathology. Electronically Signed: Aron Carrera MD at 6:11 EDT Reading Location ID and State: [facility] / [place] , Service support , Assessment & Plan Assessment/Plan (1) Chest pain: PLAN: Plan 1. Chest pain/HTN ? Troponins are normal, will obtain a stress test ? Her chest pain has resolved ? EKG is not ischemic ? Continue with her home metoprolol 2. Hypothyroidism ? Stable ? Continue with Synthroid 3. DM 2 ? Stable ? Continue metformin 4. IBS ? Stable ? Continue with her home medications 5. Migraines ? Stable ? Continue with sumatriptan as necessary DVT: Ambulation
--- NOTE | 2023-02-14 17:42 | DCINST_ITS ---
Discharge Instructions Diet Discharge Diet: Low fat / Low cholesterol and Carb Control Diet Activity Discharge Activity: Return to Normal Activity Dressing / Incision Call your doctor if you observe: Fever of 101 or Higher, Shortness of breath, Dizziness, Fainting spells, Swelling in the ankles, Chest pain and Increased palpitations (irregular heartbeat) Follow Up Care Test Results: Test results from this visit will be discussed in further detail at your follow- up appointment, if applicable. Discharge Plan Admission Admit Date/Time: 02/14/23 08:13 Attending Provider: Neo Deleon Primary Care Provider: Sanju Sheppard Discharge Orders/Prescriptions Prescriptions: Continued sumatriptan succinate 100 MG tablet 100 mg PO TID PRN PRN (Reason: Migraine Symptoms) Label Comments: migraines azelastine 6 ML drops 1 drp Each Eye BID PRN (Reason: ITCHING/PRESSURE) Label Comments: INSTILL 1 DROP INTO BOTH EYES TWICE DAILY multivitamin [Multiple Vitamins] 1 EACH tablet 1 ea PO DAILY loperamide 2 MG capsule 2 mg PO Q4H PRN PRN (Reason: Diarrhea) duloxetine 60 mg capsule,delayed release(DR/EC) 60 mg PO DAILY Label Comments: take 1 capsule by mouth once daily Aimovig Autoinjector 70 mg/mL auto-injector 70 mg subcut QMONTH Label Comments: inject 1 milliliter ( 70 milligrams ) subcutaneously Every Month ... (REFER TO PRESCRIPTION NOTES). diphenhydramine-acetaminophen [Acetaminophen PM] 25-500 mg Tablet 2 tab PO QHS PRN (Reason: Sleep) sucralfate [Carafate] 1 gram Tablet 1 g PO ACHS metformin 500 mg tablet extended release 24 hr 1,000 mg PO DAILY Label Comments: Take 2 tablets by mouth once daily. levothyroxine 50 mcg tablet 50 mcg PO DAILY Label Comments: Take 1 tablet by mouth once daily. Take on empty stomach. For Thyroid metoprolol succinate 25 mg tablet extended release 24 hr 25 mg PO DAILY Label Comments: Take 1 tablet by mouth once daily. Linzess 72 mcg capsule 72 mcg PO DAILY Label Comments: Take 1 capsule by mouth once daily. Administer on an empty stomach. Swallow whole; DO NOT crush or chew. Referrals / Follow Up: Sanju Sheppard MD [Primary Care Provider] - Within 1 Week Disposition Disposition (needs filled in before D/C Order can be placed): Home, Self Care
--- NOTE | 2023-02-14 19:18 | STRESSREP_ITS ---
Stress Test Report Exercise myocardial perfusion stress test. 72-year-old lady with a history of chest pain Stress protocol: Resting EKG demonstrates normal sinus rhythm with a rate of 58 bpm resting blood pressure is 144/94 mmHg. The patient exercised according to the regular Moi protocol for a total duration of 6 minutes and 16 seconds attaining a maximum heart rate of 130 bpm which was 86% of maximum predicted heart rate; the maximum workload was 7.7 metabolic equivalents. At rest there were no ST or T wave changes noted to suggest ischemia and at peak exercise upsloping ST changes only were noted which did not meet the criteria for ischemia. No clinical angina was noted the test was terminated due to the target heart rate being achieved/fatig ue. The peak blood pressure was 170/82 mmHg. Rate-pressure product was 18,900. Myocardial perfusion protocol. 11.9 mCi of technetium 99m sestamibi was injected at rest. The patient exercised according to regular Moi protocol for total duration of 6 minutes and 16 seconds and at peak exercise to 3.3 mCi of technetium 99m sestamibi was injected stress images were obtained stress and rest images were reconstructed in comparing the short axis vertical long and horizontal long axis. Gated images were also obtained. Perfusion SPECT analysis: Review of the stress images demonstrate normal uptake of tracer noted in all areas of the myocardium. The resting images similarly demonstrate normal uptake of tracer noted in all areas of the myocardium. No areas of reversibility are noted to suggest ischemia no previous infarct was noted. Gated SPECT analysis: The gated ejection fraction is 72%. Conclusion: Normal exercise myocardial perfusion stress test at a moderate workload Preserved ejection fraction.
== END 2023-02-14 18:04 | disposition home or self-care (01) ==
LOC: ED 08:33 → PCU 09:09
PROVIDERS: Admitting Provider Family Medicine; Emergency Provider Emergency Medicine; PCP Family Medicine; Visit Provider Family Medicine
DX: R07.89 Other chest pain (principal); E11.9 Type 2 diabetes mellitus without complications; G43.909 Migraine, unspecified, not intractable, without status migrainosus; R06.02 Shortness of breath; Z79.899 Other long term (current) drug therapy; I10 Essential (primary) hypertension; K58.9 Irritable bowel syndrome, unspecified; E03.9 Hypothyroidism, unspecified; Z79.84 Long term (current) use of oral hypoglycemic drugs; Z79.890 Hormone replacement therapy
CPT/HCPCS: 36415; 71046; 78452; 80048; 83735; 84443; 84484; 85025; 93005; 93017; 99221; 99282; A9500; A4216; G0378

== ENCOUNTER 2023-11-03 08:24 | Emergency (ER) | payer MEDICARE, SELFPAY ==
[2023-11-03 08:24] VITALS: PULSE 86; RESP 17; TEMP 36.1; O2SAT 94; BMI 31.9
[2023-11-03 08:27] VITALS: BP 166/86
--- NOTE | 2023-11-03 08:37 | EKG12_ITS ---
Test Reason : CP Blood Pressure : / mmHG Vent. Rate : 074 BPM Atrial Rate : 074 BPM P-R Int : 218 ms QRS Dur : 092 ms QT Int : 400 ms P-R-T Axes : 045 -05 025 degrees QTc Int : 444 ms Sinus rhythm with 1st degree A-V block Minimal voltage criteria for LVH, may be normal variant ( R in aVL ) Nonspecific ST abnormality Abnormal ECG Confirmed by PARAS HITCHCOCK, DWAYNE ([id number]), assistant editor CHRISTINA LAWRENCE ([id number]) on 11/06/2023 9:36:16 AM Referred By: CHINYERE Confirmed By:DWAYNE CRAIN MD
[2023-11-03 08:50] LABS: Absolute Lymphocyte Count 2.68 X10^3/uL (0.83-4.51); Absolute Neutrophil Count 5.8 X10^3/uL (2.0-7.7); Basophil# 0.06 X10^3/uL; Basophil% 0.6 % (0-1); Eosinophil# 0.24 X10^3/uL; Eosinophils% 2.5 % (0-5); Hematocrit 42.3 % (37-47); Hemoglobin 13.2 g/dL (12.0-15.0); Lymphocyte # 2.68 X10^3/ul (0.83-4.51); Lymphocyte % 28.2 % (19-41); Mean Corp Hgb Conc 31.2 g/dL (32-36); Mean Corpuscular Hgb 28.7 pg (27.0-32.0); Mean Platelet Vol. 9.3 fl (6.2-12.0); Monocyte# 0.69 X10^3/uL; Monocyte% 7.3 % (0-10); NRBC Flagged by Analyzer 0 % (0-5); Neutrophil # 5.79 X10^3/uL (2.7-7.7); Neutrophil % 61.1 % (47-70); Platelet Count 386 K/mm3 (150-450); RBC Distribution Width CV 12.9 % (11.6-14.6); RBC Distribution Width SD 43.6 fl (35.1-43.9); White Blood Count 9.5 K/mm3 (4.4-11.0)
--- NOTE | 2023-11-03 09:04 | ED.VIS.CHEST ---
HPI History of Present Illness Chief Complaint: Chest Pain Detail of Chief Complaint: Midsternal chest pain 1 hour ago at home. At rest. Informant: patient and spouse/S.O. Onset/Context/Timing Onset: Today and Hours Activity at onset: gradual Timing: Continuous Quality: Positive for Aching Location: Substernal Current Severity: Mild Maximum Severity: Mild Worsened By: Nothing Associated Symptoms: Negative for Nausea, Vomiting, Diaphoresis, Dyspnea, Cough, Fever, Lightheadedness, Acid Reflux or Palpitations Narrative Narrative: 73-year-old female no cardiac history does have a history of borderline diabetes. Had a negative stress test in the past. History of hypertension. She does not believe she has ever had a heart cath. About an hour prior to arrival she had midsternal chest discomfort. It is improved but still present. No radiation to her neck back or jaw. No dyspnea. No history of DVT or PE or risk factors. No leg pain or swelling. No hemoptysis. Pain is not pleuritic. She is currently on antibiotic Augmentin which she has been on since yesterday. Prior Similar Symptoms: Yes Recent Illness/Hospitalization: No CVD Risk Factors: Positive for Hypertension and Diabetes PE Risk Factors: Negative for Recent Travel/Surgery, Recent Immobilization, Prior DVT or PE, Cancer or OCP + Smoking + >/=35 TAD Risk Factors: Negative for Marfan's Syndrome, Hypertension or Family History [facility] Medical History Gastroparesis Hypertension IBS (irritable bowel syndrome) Migraine Home Medications sumatriptan succinate 100 mg tablet 100 mg PO TID PRN PRN Migraine Symptoms 10/22/15 [History Last Taken 02/13/23] azelastine 0.05 % eye drops 1 drp BID PRN ITCHING/PRESSURE 03/26/18 [History Last Taken 01/19/21] loperamide 2 mg capsule 2 mg PO Q4H PRN PRN Diarrhea 03/26/18 [History Last Taken 01/19/21] multivitamin (Multiple Vitamins tablet) 1 ea PO DAILY SUPPLEMENT 03/26/18 [History Last Taken 02/13/23] diphenhydramine 25 mg-acetaminophen 500 mg tablet (Acetaminophen PM) 2 tab PO QHS PRN Sleep 01/19/21 [History Last Taken 02/13/23] duloxetine 60 mg capsule,delayed release 60 mg PO DAILY depression 01/19/21 [History Last Taken 02/13/23] erenumab-aooe 70 mg/mL subcutaneous auto-injector (Aimovig Autoinjector) 70 mg subcut QMONTH 01/19/21 [History Last Taken 12/27/20] sucralfate 1 gram tablet (Carafate) 1 g PO ACHS 02/13/22 [History Last Taken Unknown] metformin 500 mg tablet,extended release 24 hr 1,000 mg PO DAILY 07/02/22 [History Last Taken 02/13/23] levothyroxine 50 mcg tablet 50 mcg PO DAILY thyroid 02/14/23 [History Last Taken 02/14/23] linaclotide 72 mcg capsule (Linzess) 72 mcg PO DAILY Stomach 02/14/23 [History Last Taken 02/14/23] metoprolol succinate 25 mg tablet,extended release 24 hr 25 mg PO DAILY BP 02/14/23 [History Last Taken 02/14/23] Allergy/AdvReac Type Severity Reaction Status Date / Time venlafaxine HCl Allergy Hives Verified 11/03/23 08:26 [From Effexor] fluticasone propionate AdvReac headache Verified 11/03/23 08:26 [From Flonase] Family History Other Heart disease Hypertension Surgical History History of esophageal hernia repair Social History household members: spouse housing: house number of children: 2 Smoking Status: Never smoker details: Drinks alcohol occasionally. ROS ROS ED ROS Narrative Chest pain. Review of Systems ROS Unobtainable: Denies due to encephalopathy Constitutional Constitutional ED: Denies chills or fever(s) Eyes Eyes: Reports none ENT ENT ED: Denies ear pain Cardiovascular Cardiovascular: Reports as per HPI and chest pain; Denies palpitations or racing heartbeat Respiratory/Chest Respiratory/Chest: Denies cough, dyspnea or dyspnea on exertion Gastrointestinal Gastrointestinal: Denies abdominal pain, constipation, diarrhea, melena, nausea or vomiting Genitourinary Genitourinary ED: Denies dysuria or hematuria Musculoskeletal Musculoskeletal: Denies arthralgias, back pain or myalgias Integumentary Denies abscess, Abrasions or rash Neurologic Neurologic: Denies headache(s) Psychiatric Psychiatric: Denies anxiety Endocrine Endocrinology: Denies cold intolerance Hematologic/Lymphatic Hematologic/Lymphatic: Denies easy bleeding, easy bruising or lymphadenopathy Allergic/Immunologic Allergic/Immunologic ED: Denies mouth swelling, tongue swelling or urticaria EXAM Physical Exam Narrative Exam Narrative: 73-year-old female no acute distress. Vital signs stable afebrile. Pulse ox 94% on room air no signs of pox. H EENT exam unremarkable. Neck nontender. No JVD. Lungs clear to auscultation bilaterally. Heart regular rhythm no murmur. Chest wall there is some reproducible midsternal chest discomfort there is no redness or bruising. She said it is not exactly the pain she had prior to arrival. Abdomen is soft, nontender, normal bowel sounds no peritoneal signs. Moving all 4 extremities. Equal symmetrical strong radial pulses. Normal director of extension work strength. Calves are nontender without edema or cords. Normal dorsi plantarflexion. Back normal. Neurologically she is awake and alert with no focal motor deficits. Const Vital Signs: 11/03/23 08:24 11/03/23 08:27 11/03/23 09:35 Temperature 97 F L Temperature Source Temporal Pulse Rate 86 Respiratory Rate 17 Blood Pressure 166/86 H Blood Pressure Mean 112 Pulse Ox 94 Oxygen Delivery Method Room Air Room Air 11/03/23 11:01 Temperature Temperature Source Pulse Rate 72 Respiratory Rate 16 Blood Pressure 160/90 H Blood Pressure Mean 113 Pulse Ox 98 Oxygen Delivery Method Room Air Positive well nourished and well developed; Negative for cachectic, contractures or unkempt General Appearance ED: well developed and NAD; Negative for unkempt, cachectic, contractures or pallor Nutritional Appearance: Negative for cachectic HEENT Reports moist mucous membranes normocephalic and atraumatic; Negative for trauma or tenderness Eyes PERRL and EOMs intact bilaterally General Eye ED: Negative for pale conjunctiva or scleral icterus Neck no lymphadenopathy, supple and no JVD General: Negative for tenderness Chest Wall inspection of chest normal; Negative for palpation of chest normal Chest Narrative: Mild reproducible sternal chest discomfort. Normal inspection otherwise. Chest: tenderness Resp normal respiratory effort and clear to auscultation bilaterally Effort and Inspection: Negative for respiratory distress Auscultation: Negative for rales, rhonchi or wheezes Cardio regular rate, regular rhythm, S1 normal heart sound, S2 normal heart sound and no murmurs Rate: Negative for bradycardia or tachycardic Rhythm: Negative for abnormal rhythm Peripheral Pulses: pulses 2+ throughout GI normal to inspection, nondistended, normoactive bowel sounds, soft to palpation, non-tender, non-distended and no masses Palpation: Negative for mass Back/Spine no CVA tenderness and no thoracic nor lumbar tenderness General Back: Negative for CVA tenderness Cervical Spine: Negative for cervical spine tenderness Extremity normal to inspection General Extremety ED: Negative for edema, pulses abnormal or tenderness General Extremity: Negative for edema or pulses abnormal Neuro oriented x3 and CN's II-XII intact bilaterally Sensorium / Orientation: awake, alert, oriented to person, oriented to place and oriented to time; Negative for confused, lethargic or stuporous Motor Exam: strength 5/5 throughout Psych mental status grossly normal Appearance: Negative for unkempt Attitude: No agitated Mood & Affect: Negative for depressed, anxious or tearful Skin no rashes or lesions noted and no wounds General Skin Exam: Negative for jaundice or pallor Rashes: No rashes noted Trauma: Negative for abrasion or laceration Heart Score History: Slightly/Non-Suspicious ECG: Normal Age: >/= 65 years Risk Factors: 1 or 2 Risk Factors Troponin: </= Normal Limit Score: 3 MDM MDM MDM Narrative Medical decision making narrative: 73-year-old female with nonexertional chest pain this morning. There is a reproducible component but she states is not the same pain. She also it was started on Augmentin yesterday and had nausea and vomiting x 1 last night. Differential would include cardiac chest pain which I think is a good chance this mopey. Versus like an esophagitis or esophageal spasm. He could be reproducible musculoskeletal pain. She has no history or risk factors for DVT or PE. Clinically there is no radiation of the pain and no pain in her back I do not think this is a dissection. Repeat exam patient doing well at 1:12 PM patient doing well. No further chest pain. Feels comfortable being discharged home. We went over all of her test results including EKG, chest x-ray and labs. The pain may be GI related she is currently on Augmentin and she had a prior history of a hiatal hernia and repair. History & Record Review Discussion w/independent historian: Patient and Family Additional record(s) reviewed:: Prior inpatient record, Prior outpatient record, Prior ED visit and Prior labs Lab Data Lab results narrative: CBC shows a white count of 9. H&H 13 and 42. Platelets 386. Chemistries show potassium 3.3. Gap 5. Normal BUN and creatinine. Glucose 139. Initial troponin 5. 2-hour troponin 5. Labs: Laboratory Results - last 24 hr 11/03/23 11/03/23 08:35 10:35 WBC 9.5 RBC 4.60 Hgb 13.2 Hct 42.3 MCV 92.0 MCH 28.7 MCHC 31.2 L RDW Std Deviation 43.6 RDW Coeff of Alejandra 12.9 Plt Count 386 MPV 9.3 Immature Gran % (Auto) 0.300 Neut % (Auto) 61.1 Lymph % (Auto) 28.2 [place] % (Auto) 7.3 Eos % (Auto) 2.5 Baso % (Auto) 0.6 Absolute Neuts (auto) 5.8 Absolute Lymphs (auto) 2.68 Nucleated RBC % 0 Sodium 139 Potassium 3.3 L Chloride 106 Carbon Dioxide 28.0 Anion Gap 5 BUN 14 Creatinine 0.77 Estim Creat Clear Calc 62.86 Est GFR (MDRD) Af Amer 95 Est GFR (MDRD) Non-Af 79 BUN/Creatinine Ratio 18.2 Glucose 139 H Calcium 9.4 Troponin I High Sens 5 5 Radiography Chest X-Ray - ED: 1 View, Read by ED Physician, Heart, Lungs, Mediastinum, Bony Structures, No Acute Disease and Chronic Changes Diagnostic Testing: Clinical Impression(s) from Imaging Studies Chest X-Ray 11/03/23 09:05 IMPRESSION: Stable elevation of the left hemidiaphragm. The lungs are clear. Hiatal hernia. Electronically Signed: Javi Aranda MD at 9:18 EST , Chest x-ray, portable, single view interpreted by myself and the radiologist shows no acute abnormality. Elevated left Marquise diaphragm. Normal cardiac silhouette. Normal lung douglass. Rhythm Strip Rhythm Strip: Sinus Rhythm Rate: 74 Ectopy: None EKG Initial EKG: Attestation: I personally reviewed and interpreted this EKG as follows: Interpretation: Sinus Rhythm and No Acute Injury Pattern Comments: Normal sinus rhythm rate of 74 no acute signs of TN or ischemia. No ST elevation or depression. Discharge Plan Triage Chief Complaint: Chest Pain ED Provider: Demetrio Bowens Dx/Rx/DC Orders Clinical Impression: Borderline diabetes mellitus, Chest pain Instructions: ED Chest Pain, Noncardiac (Child) Prescriptions: No Action sumatriptan succinate 100 MG tablet 100 mg PO TID PRN PRN (Reason: Migraine Symptoms) Patient Comments: migraines azelastine 6 ML drops 1 drp Each Eye BID PRN (Reason: ITCHING/PRESSURE) Patient Comments: INSTILL 1 DROP INTO BOTH EYES TWICE DAILY multivitamin [Multiple Vitamins] 1 EACH tablet 1 ea PO DAILY loperamide 2 MG capsule 2 mg PO Q4H PRN PRN (Reason: Diarrhea) duloxetine 60 mg capsule,delayed release(DR/EC) 60 mg PO DAILY Patient Comments: take 1 capsule by mouth once daily Aimovig Autoinjector 70 mg/mL auto-injector 70 mg subcut QMONTH Patient Comments: inject 1 milliliter ( 70 milligrams ) subcutaneously Every Month ... (REFER TO PRESCRIPTION NOTES). diphenhydramine-acetaminophen [Acetaminophen PM] 25-500 mg Tablet 2 tab PO QHS PRN (Reason: Sleep) sucralfate [Carafate] 1 gram Tablet 1 g PO ACHS metformin 500 mg tablet extended release 24 hr 1,000 mg PO DAILY Patient Comments: Take 2 tablets by mouth once daily. levothyroxine 50 mcg tablet 50 mcg PO DAILY Patient Comments: Take 1 tablet by mouth once daily. Take on empty stomach. For Thyroid metoprolol succinate 25 mg tablet extended release 24 hr 25 mg PO DAILY Patient Comments: Take 1 tablet by mouth once daily. Linzess 72 mcg capsule 72 mcg PO DAILY Patient Comments: Take 1 capsule by mouth once daily. Administer on an empty stomach. Swallow whole; DO NOT crush or chew. Primary Care Provider: Sanju Sheppard Referrals: Sanju Sheppard MD [Primary Care Provider] - 1 Week Activity Restrictions/Additional Instructions: Call and follow-up your primary care physician. I do not think this is your heart today. It may be your stomach or your esophagus from being on the Augmentin. Your labs today chest x-ray and EKG were unremarkable. Disposition Disposition: Home, Self Care
--- NOTE | 2023-11-03 09:05 | RAD_ITS ---
STUDY: X-RAY CHEST REASON FOR EXAM: Female, 73 years old. Chest pain TECHNIQUE: Single AP portable view of the chest. COMPARISON: Comparison is made with prior study dated February 14, 2023. FINDINGS: EKG electrodes are seen. Stable elevation of the left hemidiaphragm. Scattered calcified granulomas. There is no demonstrated pleural abnormality. Normal size heart. Normal mediastinum and janette. Normal visualized pulmonary arteries. Normal visualized aortic arch and descending thoracic aorta. There are degenerative changes of the visualized thoracic spine. Normal visualized ribs, clavicles, and shoulders. Small hiatal hernia. RAD/Chest 1 View (Portable) IMPRESSION: Stable elevation of the left hemidiaphragm. The lungs are clear. Hiatal hernia. Electronically Signed: Javi Aranda MD at 9:18 EST ,
[2023-11-03 09:15] LABS: Anion Gap 5 (5-15); BUN 14 mg/dL (7-18); BUN/Creat Ratio 18.2 RATIO (10-20); Calcium,Total 9.4 mg/dL (8.5-10.1); Chloride 106 mmol/L (98-107); Creatinine, Serum 0.77 mg/dL (0.55-1.02); EST Glomerular Filtration Rate 79 mL/min (>60); Est Glom Filt Rate - Afr Amer 95 mL/min (>60); Estimated Creatinine Clearance 62.86 ml/min; Glucose 139 mg/dL (74-106); Potassium 3.3 mmol/L (3.5-5.1); Sodium Level 139 mmol/L (136-145); Troponin-I HS (w/2H Reflex) 5 pg/mL (3.0-54.0)
[2023-11-03] MEDS: Aspirin 81 MG TAB.CHEW 324 MG PO (10:32)
[2023-11-03 10:45] LABS: Reflex Troponin-HS? (from REC) Y
[2023-11-03 11:01] VITALS: BP 160/90; PULSE 72; RESP 16; O2SAT 98
[2023-11-03 11:17] LABS: Troponin-I HS 5 pg/mL (3.0-54.0)
[2023-11-03 13:17] VITALS: BP 159/76; PULSE 74; RESP 16; O2SAT 95
[2023-11-03 13:22] VITALS: BP 159/76; PULSE 73; RESP 16; TEMP 36.1; O2SAT 96
== END 2023-11-03 13:23 | disposition home or self-care (01) ==
PROVIDERS: Emergency Provider Emergency Medicine; PCP Family Medicine; Visit Provider Emergency Medicine
DX: R07.9 Chest pain, unspecified (principal); I10 Essential (primary) hypertension; R73.03 Prediabetes; Z79.84 Long term (current) use of oral hypoglycemic drugs; Z79.899 Other long term (current) drug therapy
CPT/HCPCS: 71045; 80048; 84484; 85025; 93005; 99284; A4216

== ENCOUNTER 2025-07-04 12:53 | Emergency (ER) | payer MEDICARE, SELFPAY ==
[2025-07-04 12:54] VITALS: BP 152/85; PULSE 79; RESP 16; TEMP 36.9; O2SAT 99; BMI 28.2
--- NOTE | 2025-07-04 13:40 | CT_ITS ---
PROCEDURE: ABDOMEN/PELVIS W IV CONT ONLY 07/04/2025 REASON FOR EXAM: R ABDOMINAL PAIN TECHNIQUE: Procedure Code: [id number] Modality: CT Procedure: ABDOMEN/PELVIS W IV CONT ONLY Coronal and Sagittal reconstruction series were provided. CONTRAST: Isovue 370 VOLUME: 96 mL One or more dose reduction techniques were used (e.g., Automated exposure control, adjustment of the mA and/or kV according to patient size, use of iterative reconstruction technique. RADIATION DOSE SUMMARY: CTDlvol: 11.8 mGy DLP: 593.44 mGycm COMPARISON: None. FINDINGS: Lung bases: Elevation of the left hemidiaphragm. The lungs are clear. Liver: Unremarkable. Gallbladder: Unremarkable. Spleen: Unremarkable. Pancreas: Unremarkable. Adrenals: Unremarkable. Kidneys: No hydronephrosis. No nephrolithiasis. Bladder: Unremarkable. Reproductive Organs: Status post tubal ligation. Otherwise unremarkable. Bowel: Colonic diverticulosis with no evidence of acute diverticulitis. No bowel obstruction. Appendix: Unremarkable. Lymph nodes: No lymphadenopathy. Vasculature: Atherosclerotic calcifications of the aorta . No aneurysm. Peritoneum / Retroperitoneum: No free air or free fluid. Bones: Indeterminate compression fracture at the upper endplate of L1 with 30% height loss and [address]/Abdomen/Pelvis W IV Cont ONLY IMPRESSION: No acute abdominopelvic abnormalities. Indeterminate compression fracture at the upper endplate of L1. correlation wi th focal tenderness, clinical history of stone and possibly MRI lumbar spine is recommended. Reading Location: [facility]
[2025-07-04 13:51] LABS: Hematocrit 39.0 % (37-47); Hemoglobin 12.8 g/dL (12.0-15.0); Immature Granulocytes Count 0.020 X10^3/uL (0.0-0.0); Mean Corp Hgb Conc 32.8 g/dL (32-36); Mean Corpuscular Volume 91.1 fL (81-99); Mean Platelet Vol. 9.5 fl (6.2-12.0); NRBC Flagged by Analyzer 0 % (0-5); Platelet Count 340 K/mm3 (150-450); RBC Distribution Width CV 13.7 % (11.6-14.6); RBC Distribution Width SD 45.8 fl (35.1-43.9); Red Blood Count 4.28 M/mm3 (4.2-5.4); White Blood Count 8.9 K/mm3 (4.4-11.0)
--- NOTE | 2025-07-04 13:53 | ED.VIS.GI ---
HPI HPI - GI History of Present Illness Chief Complaint: Abd Pain Informant: patient Narrative Narrative: 74-year-old female presenting to the emergency room for evaluation abdominal pain. Patient is a poor historian and impute early give much details. She states that she has a lot of things wrong with her stomach.. She states that she has had a history of gastroparesis and believes she had a surgery for it but describes more of the surgeon opening a hole on the left side of her abdomen. She states that she has irritable bowel. Over the past week she has had pain in the lateral aspect of the right upper quadrant. She is unable to locate the source of pain currently. States that she went to a urgent care while on vacation in [place] that they did not take her insurance. She went to urgent care today locally and was sent to the emergency department. She denies any fever. She states she had 1 day where she vomited. She states that she is had diarrhea. When I specifically she states that she cannot recall when she had diarrhea but believes she has a little bit each day but sometimes it is formed. [facility] Medical History Hypertension Gastroparesis IBS (irritable bowel syndrome) Migraine Home Medications ?Medication ?Instructions ?Recorded ?Last Taken ?Type sumatriptan succinate 100 mg tablet 100 mg PO TID PRN PRN Migraine 10/22/15 02/13/23 History Symptoms azelastine 0.05 % eye drops 1 drp BID PRN ITCHING/PRESSURE 03/26/18 01/19/21 History loperamide 2 mg capsule 2 mg PO Q4H PRN PRN Diarrhea 03/26/18 01/19/21 History multivitamin (Multiple Vitamins 1 ea PO DAILY SUPPLEMENT 03/26/18 02/13/23 History tablet) diphenhydramine 25 2 tab PO QHS PRN Sleep 01/19/21 02/13/23 History mg-acetaminophen 500 mg tablet (Acetaminophen PM) duloxetine 60 mg capsule,delayed 60 mg PO DAILY depression 01/19/21 02/13/23 History release erenumab-aooe 70 mg/mL 70 mg subcut QMONTH 01/19/21 12/27/20 History subcutaneous auto-injector (Aimovig Autoinjector) sucralfate 1 gram tablet (Carafate) 1 g PO ACHS 02/13/22 Unknown History metformin 500 mg tablet,extended 1,000 mg PO DAILY 07/02/22 02/13/23 History release 24 hr levothyroxine 50 mcg tablet 50 mcg PO DAILY thyroid 02/14/23 02/14/23 History linaclotide 72 mcg capsule 72 mcg PO DAILY Stomach 02/14/23 02/14/23 History (Linzess) metoprolol succinate 25 mg 25 mg PO DAILY BP 02/14/23 02/14/23 History tablet,extended release 24 hr Allergy/AdvReac Type Severity Reaction Status Date / Time venlafaxine HCl (From Allergy Hives Verified 07/04/25 12:57 Effexor) fluticasone propionate (From AdvReac headache Verified 07/04/25 12:57 Flonase) Family History Other Heart disease Hypertension Surgical History History of esophageal hernia repair Social History household members: spouse housing: house number of children: 2 Smoking Status: Never smoker details: Drinks alcohol occasionally. ROS ROS ED Constitutional Constitutional ED: Denies chills, fever(s) or weight loss Eyes Eyes: Denies change in vision or diplopia ENT ENT ED: Denies ear pain, rhinorrhea or sore throat Cardiovascular Cardiovascular: Denies chest pain, orthopnea, palpitations or racing heartbeat Respiratory/Chest Respiratory/Chest: Denies cough, dyspnea or orthopnea Gastrointestinal Gastrointestinal: Reports abdominal pain, diarrhea, nausea and vomiting Genitourinary Genitourinary ED: Denies dysuria, hematuria or urinary frequency Musculoskeletal Musculoskeletal: Denies arthralgias or myalgias Integumentary Denies abscess or rash Neurologic Neurologic: Denies headache(s) or weakness Psychiatric Psychiatric: Denies anxiety, depression, suicidal ideation or suicidal thoughts Endocrine Endocrinology: Denies polydipsia, polyphagia or polyuria Allergic/Immunologic Allergic/Immunologic ED: Denies mouth swelling, tongue swelling or urticaria EXAM Physical Exam Const Vital Signs: 07/04/25 12:54 07/04/25 14:53 Temperature 98.4 F Temperature Source Oral Pulse Rate 79 90 Respiratory Rate 16 16 Blood Pressure 152/85 H 127/81 H Blood Pressure Mean 107 96 Pulse Ox 99 99 Oxygen Delivery Method Room Air Positive well nourished and well developed General Appearance ED: well developed and NAD HEENT Reports normocephalic, head/scalp atraumatic and moist mucous membranes Eyes PERRL and EOMs intact bilaterally Neck no lymphadenopathy, supple and no JVD Resp normal respiratory effort and clear to auscultation bilaterally Cardio regular rate, regular rhythm and no murmurs GI normal to inspection, nondistended, normoactive bowel sounds and non-tender Palpation: soft Back/Spine no CVA tenderness and normal ROM Extremity normal to inspection General Extremety ED: Negative for edema General Extremity: Negative for edema Neuro oriented x3 and CN's II-XII intact bilaterally Sensorium / Orientation: alert Motor Exam: strength 5/5 throughout Psych mental status grossly normal Mood & Affect: Negative for depressed or tearful Skin no rashes or lesions noted and no wounds MDM MDM MDM Narrative Medical decision making narrative: Differential diagnosis includes cholecystitis diverticulitis colitis UTI pyelonephritis appendicitis Basic blood work is obtained essentially negative including liver enzymes lipase urinalysis white count of 8.[address] then pelvis with IV contrast obtained please see radiologist read for full details but in short no obvious explanation for the patient's pain. Patient received a dose of Toradol for pain. I spoke with patient and recommend observation at home. If consistent symptoms worsening she can return or follow-up with primary care. Patient is understanding of the plan and is comfortable with her. History & Record Review Discussion w/independent historian: Patient Lab Data Attestation: I reviewed the patient's lab results. Labs: Laboratory Results - last 24 hr 07/04/25 07/04/25 13:16 13:22 WBC 8.9 RBC 4.28 Hgb 12.8 Hct 39.0 MCV 91.1 MCH 29.9 MCHC 32.8 RDW Std Deviation 45.8 H RDW Coeff of Alejandra 13.7 Plt Count 340 MPV 9.5 Immature Gran % (Auto) 0.200 Neut % (Auto) 52.8 Lymph % (Auto) 37.6 [place] % (Auto) 7.5 Eos % (Auto) 1.0 Baso % (Auto) 0.9 Absolute Neuts (auto) 4.7 Absolute Lymphs (auto) 3.35 Nucleated RBC % 0 Sodium 140 Potassium 3.7 Chloride 106 Carbon Dioxide 24.0 Anion Gap 10 BUN 10 Creatinine 0.73 Estim Creat Clear Calc 58.29 Est GFR (MDRD) Non-Af 88 BUN/Creatinine Ratio 13.6 Glucose 78 Calcium 8.9 Total Bilirubin 0.26 Direct Bilirubin < 0.08 AST 23 ALT 12 Alkaline Phosphatase 67 Total Protein 6.3 Albumin 3.6 Globulin 2.7 Lipase 24 Urine Color Yellow Urine Clarity Clear Urine pH 6.5 Ur Specific [place] 1.015 Urine Protein 30 H Urine Glucose (UA) Normal Urine Ketones Negative Urine Occult Blood 10 H Urine Nitrite Negative Urine Bilirubin Negative Urine Urobilinogen Normal Ur Leukocyte Esterase 25 H Urine RBC 0-5 SEEN Urine WBC 0-5 SEEN Ur Squamous Epith Cells 0 SEEN Urine Bacteria 1+ Urine Mucus 0 SEEN Radiography Diagnostic Testing: Clinical Impression(s) from Imaging Studies Abdomen/Pelvis CT 07/04/25 13:40 IMPRESSION: No acute abdominopelvic abnormalities. Indeterminate compression fracture at the upper endplate of L1. correlation with focal tenderness, clinical history of stone and possibly MRI lumbar spine is recommended. Reading Location: [facility] Discharge Plan Triage Chief Complaint: Abd Pain ED Provider: Bright Forte Dx/Rx/DC Orders Clinical Impression: Abdominal pain Instructions: Abdominal Pain Prescriptions: No Action sumatriptan succinate 100 MG tablet 100 mg PO TID PRN PRN (Reason: Migraine Symptoms) Patient Comments: migraines azelastine 6 ML drops 1 drp Each Eye BID PRN (Reason: ITCHING/PRESSURE) Patient Comments: INSTILL 1 DROP INTO BOTH EYES TWICE DAILY multivitamin [Multiple Vitamins] 1 EACH tablet 1 ea PO DAILY loperamide 2 MG capsule 2 mg PO Q4H PRN PRN (Reason: Diarrhea) duloxetine 60 mg capsule,delayed release(DR/EC) 60 mg PO DAILY Patient Comments: take 1 capsule by mouth once daily Aimovig Autoinjector 70 mg/mL auto-injector 70 mg subcut QMONTH Patient Comments: inject 1 milliliter ( 70 milligrams ) subcutaneously Every Month ... (REFER TO PRESCRIPTION NOTES). diphenhydramine-acetaminophen [Acetaminophen PM] 25-500 mg Tablet 2 tab PO QHS PRN (Reason: Sleep) sucralfate [Carafate] 1 gram Tablet 1 g PO ACHS metformin 500 mg tablet extended release 24 hr 1,000 mg PO DAILY Patient Comments: Take 2 tablets by mouth once daily. levothyroxine 50 mcg tablet 50 mcg PO DAILY Patient Comments: Take 1 tablet by mouth once daily. Take on empty stomach. For Thyroid metoprolol succinate 25 mg tablet extended release 24 hr 25 mg PO DAILY Patient Comments: Take 1 tablet by mouth once daily. Linzess 72 mcg capsule 72 mcg PO DAILY Patient Comments: Take 1 capsule by mouth once daily. Administer on an empty stomach. Swallow whole; DO NOT crush or chew. Primary Care Provider: Sanju Sheppard Referrals: Sanju Sheppard MD [Primary Care Provider, Family Practice] Print Language: Macedonian Disposition Disposition: Home, Self Care
[2025-07-04 13:54] LABS: Mucous, Urine 0 SEEN /hpf (<or=2+); Squamous Epithelial Cells - UA 0 SEEN /hpf (5-10)
[2025-07-04] MEDS: 0.9% Normal Saline (1000mL) 1,000 ML 999 ML IV (13:54)
[2025-07-04 14:07] LABS: Color, Urine Yellow (Yellow); Glucose, Dipstick Normal (Normal); Ketone-Dipstick Negative (Negative); Leukocyte Esterase-Dipstick 25 /ul (Negative); Nitrite-Dipstick Negative (Negative); Occult Blood-Urine 10 /ul (Negative); Protein-Dipstick 30 mg/dl (Negative); Specific Gravity, Urine 1.015 (1.002-1.030); Urine Bilirubin Dipstick Negative (Negative)
[2025-07-04 14:14] LABS: AST(SGOT) 23 U/L (<=31); Alanine Aminotransfer ALT/SGPT 12 U/L (<=34); Albumin, Serum 3.6 g/dL (3.4-4.8); Alkaline Phosphatase 67 U/L (35-104); Anion Gap 10 (5-15); BUN 10 mg/dL (4-19); BUN/Creat Ratio 13.6 RATIO (10-20); Bilirubin, Direct < 0.08 mg/dL (0.00-0.30); Calcium,Total 8.9 mg/dL (7.6-11.0); Carbon Dioxide 24.0 mmol/L (21.0-32.0); Chloride 106 mmol/L (98-108); Estimated Creatinine Clearance 58.29 ml/min (50-250); Globulin 2.7 g/dL (2.2-4.2); Glucose 78 mg/dL (70-99); Lipase 24 U/L (13-75); Potassium 3.7 mmol/L (3.3-5.1)
[2025-07-04 14:17] LABS: Red Blood Cells-Urine 0-5 SEEN /hpf (0-5)
[2025-07-04 14:53] VITALS: BP 127/81; PULSE 90; RESP 16; O2SAT 99
[2025-07-04 15:41] VITALS: BP 110/80; PULSE 68; RESP 14; TEMP 36.6; O2SAT 98
== END 2025-07-04 15:41 | disposition home or self-care (01) ==
PROVIDERS: Emergency Provider Emergency Medicine; PCP Family Medicine; Visit Provider Emergency Medicine
DX: R10.11 Right upper quadrant pain (principal); K58.9 Irritable bowel syndrome, unspecified; I10 Essential (primary) hypertension; Z79.890 Hormone replacement therapy; Z79.84 Long term (current) use of oral hypoglycemic drugs; Z79.899 Other long term (current) drug therapy
CPT/HCPCS: 74177; 80048; 80076; 81001; 83690; 85025; 96361; 96374; 99283; Q9967; A4216